=== PATIENT | male | born 1975 | race Caucasian/White ===

== ENCOUNTER → 2020-12-21 13:35 | Outpatient (BNVA) | payer OTHER, SELFPAY | PROVIDERS: PCP Internal Medicine; Visit Provider Internal Medicine Gastroenterology | DX: K63.89 Other specified diseases of intestine (principal) | CPT/HCPCS: 99212 ==

== ENCOUNTER 2022-07-18 06:25 | Day surgery (SDC) | payer OTHER, SELFPAY ==
--- NOTE | 2022-07-18 06:36 | P.HPSUR_ITS ---
Pre-Procedural Eval Section A Date of Service: 07/18/22 Section B Chief Complaint: Right upper quadrant pain Relevant Family History (Specify if Yes): No Relevant Social History: None Present Medications: see Short Stay Collaborative assessment Medical History: Significant History (sibo) History of Previous Operations: Relevant previous surgery/procedure and date(s) (H/O shoulder surgery History of esophagogastroduodenoscopy (EGD) Hx of colonoscopy Hx of tonsillectomy [place] teeth removed) Allergies: Allergies Allergy/AdvReac Type Severity Reaction Status Date / Time Obefmry-BEM-NiA Reductase Allergy Mild unknown Verified 12/21/20 13:59 Inhibitor [Trlfymt-Xxa-Tuu Reductase Inhibitor] Review of Systems Sugical H&P ROS: Negative: Constitution, Cardiovascular, Respiratory, Neurological, Psychiatric, Hem-Onc, Allergic/Immunologic, Gastrointestinal, Genitourinary, Musculoskeletal, Integumentary, Endocrine and Eyes/Ears/Nose/Throat Exam Surgical H&P Exam: Normal: HEENT, Normal: Heart, Normal: Lungs, Normal: Extremities, Normal: Abdomen, Normal: Skin and Normal: Neurological Plan Diagnosis/Plan: Unchanged I have reviewed the history and physical and performed a pertinent physical examination on my patient. No changes have occurred unless specified. EGD for assessment for abdominal pain Time Spent With Patient Time: Total time managing care of this patient today ____ minutes.
[2022-07-18 06:42] VITALS: BMI 22.8
[2022-07-18 06:47] VITALS: BP 126/80; PULSE 87; RESP 16; TEMP 36.1; O2SAT 99
[2022-07-18] MEDS: Lactated Ringers 1,000 ML 100 ML IVCONT (07:00)
--- NOTE | 2022-07-18 07:09 | P.CONAN_ITS ---
PMFSH Active Problems Active Problems: All Active Problems (Updated 12/21/20 @ 14:30 by Porfirio Dixon MD) Small intestinal bacterial overgrowth (SIBO) (Acute) Past Medical History Functional capacity: independent ambulation Family History Family history of problems with anesthesia: No Surgical History Surgical History H/O shoulder surgery History of esophagogastroduodenoscopy (EGD) Hx of colonoscopy Hx of tonsillectomy [place] teeth removed History of Problems with Anesthesia: No Social History Social History Patient Tobacco Use Status: Never used Tobacco Use of substances other than those prescribed or required for medical reasons: No Are you DNR?: No Advance Directives: No Advance Directives Information Provided: Yes Recently lost weight without trying: No Nutrition Risks: No Nutritional Risk Meds Allergies Allergy/AdvReac Type Severity Reaction Status Date / Time Veuybeq-FWC-YzF Reductase Allergy Mild unknown Verified 12/21/20 13:59 Inhibitor [Ddxzzrh-Uuy-Opa Reductase Inhibitor] Home Medications Medication Instructions Recorded Confirmed Last Taken Type epinephrine 0.3 mg/0.3 mL 0.3 ml IM ONCE PRN Anaphylaxis 12/21/20 07/18/22 U nknown History injection, auto-injector Exam Exam Date and Time: July 18, 2022 0709 Height,Weight and Vital Signs: Height 5 ft 9 in Weight 70.307 kg Last Vital Signs Temp 96.9 F 07/18/22 06:47 Pulse 87 07/18/22 06:47 Resp 16 07/18/22 06:47 BP 126/80 07/18/22 06:47 Pulse Ox 99 07/18/22 06:47 O2 Del Method 07/18/22 06:47 Airway Mallampati Class: II TM Dist: >3cm Neck ROM: Full Heart: RRR Lungs: CTA Assessment and Plan Final Anesthetic Review Family History of Problems with Anesthesia: No History of Problems with Anesthesia: No NPO: Yes ASA Class: II Final Preanesthetic Review: Meds/Allgs Chart Reviewed, Consent Obtained/Reviewed and Anes Risks/Benef Reviewed Patient Risk: Low Procedure Risk: Low Anesthetic Plan Anesthetic Plan: MAC: Disposition: Standard PACU
--- NOTE | 2022-07-18 08:38 | W.PM.OPN ---
Operative Note Operative Note Date of Service: 07/18/22 Narrative: Procedure Description: EGD Indication: abdo pain Anesthesia: MAC FLEXIBLE TRANSORAL UPPER GASTROINTESTINAL ENDOSCOPY UPPER ENDOSCOPY Consent: Indications for the procedure and potential complications of bleeding, perforation, reaction to medications and missed diagnosis were discussed with the patient and informed consent was obtained. Instrument: Olympus GIF H 190 J mid size upper endoscope Monitoring: Vital signs and clinical assessment, continuous EKG monitoring, Pulse oximetry, Carbon Dioxide monitoring and blood pressure monitoring were done throughout the procedure. Procedure: The patient was placed in the left lateral decubitis position and pre-procedure medications were administered and a bite block was placed. The endoscope was inserted into the mouth and advanced under direct vision to the third part of duodenum. A careful inspection was made as the upper endoscope was withdrawn including a retroflexed examination of the proximal stomach; Findings and interventions are described below. Findings: Larynx:normal Esophagus: GE junction at 43 cm, diaphragm hiatus at 43 cm, bogginess and erythema, with small erosion at GEJ, bx taken as well as from distal esophagus Stomach: Patchy gastric erythema with possible healing ulcer in distal stomach with heaped edges and edema. Biopsies were obtained. Grade 2 flap valve on retroflexed examination of the cardia. Duodenum: bulbar duodenitis Intervention: Biopsies as noted above Impression/Findings: erosive gastritis erosive esophagitis duodenitis PLAN: if H pylori pos treat confirm NSAID hx if not taking PPI then will prescribe, if is taking then maybe increase dose consider repeat EGD 3-5 months to check for healing of area in stomach noted above
[2022-07-18 08:44] VITALS: BP 107/64; PULSE 90; RESP 16; TEMP 36.4; O2SAT 95
[2022-07-18 09:00] VITALS: BP 109/45; PULSE 76; RESP 16; TEMP 36.4; O2SAT 96
--- NOTE | 2022-07-18 09:55 | HO.POSTANES ---
Post Anesthesia Evaluation Post Anesthesia Evaluation Vital Signs: Vital Signs Temp Pulse Resp BP Pulse Ox O2 Del Method 07/18/22 09:00 97.6 F 76 16 109/45 L 96 Room Air 07/18/22 08:44 97.6 F 90 16 107/64 95 Room Air 07/18/22 06:47 96.9 F 87 16 126/80 99 Room Air Anesthesia: Monitored Mental Status: Awake Pain Control: Satisfactory Nausea/Vomiting: None Anesthesia-Related Issues: No Anes. Related Issues
== END 2022-07-18 09:54 | disposition home or self-care (01) ==
PROVIDERS: PCP Family Medicine; Visit Provider Internal Medicine Gastroenterology
PROC: 0DJ08ZZ Inspection of Upper Intestinal Tract, Via Natural or Artificial Opening Endoscopic (ICD-10-PCS; CPT 43235; principal; 2022-07-18 07:30)
DX: K29.50 Unspecified chronic gastritis without bleeding (principal); K29.80 Duodenitis without bleeding; K20.80 Other esophagitis without bleeding; K44.9 Diaphragmatic hernia without obstruction or gangrene; Z88.8 Allergy status to other drugs, medicaments and biological substances; Z79.899 Other long term (current) drug therapy
CPT/HCPCS: 43239; 88305; 88342

== ENCOUNTER → 2022-08-14 12:48 | Outpatient (BNVA) | payer OTHER, SELFPAY | PROVIDERS: PCP Family Medicine; Visit Provider Internal Medicine Gastroenterology | DX: K20.90 Esophagitis, unspecified without bleeding (principal) | CPT/HCPCS: 99212 ==

== ENCOUNTER 2022-09-27 07:21 | Day surgery (SDC) | payer OTHER, SELFPAY ==
[2022-09-25 09:03] VITALS: BMI 23.0
--- NOTE | 2022-09-26 11:56 | HO.ANESPROP2 ---
Documented by User: Ana Person NP 09/26/22 11:56 HPI - Anesthesia Eval Consult details Narrative: 47yo M for Upper Endoscopy s/p EGD 06/2022 with MAC PMFSH Active Problems Active Problems: All Active Problems (Updated 09/25/22 @ 09:01 by Claire Rasmussen RN) Small intestinal bacterial overgrowth (SIBO) (Acute) Past Medical History Medical History (Updated 09/25/22 @ 09:01 by Claire Rasmussen RN) Erosive gastritis Small intestinal bacterial overgrowth (SIBO) Family History Family history of problems with anesthesia: No Surgical History Surgical History (Updated 09/25/22 @ 09:00 by Claire Rasmussen RN) H/O shoulder surgery History of esophagogastroduodenoscopy (EGD) Hx of colonoscopy Hx of tonsillectomy [place] teeth removed History of Problems with Anesthesia: No Social History Social History Patient Tobacco Use Status: Never used Tobacco Use of substances other than those prescribed or required for medical reasons: No Are you DNR?: No Advance Directives: No Advance Directives Information Provided: Yes Recently lost weight without trying: No Meds Allergies Allergy/AdvReac Type Severity Reaction Status Date / Time Pmjomyp-ZEY-IeU Reductase Allergy Mild unknown Verified 08/14/22 12:51 Inhibitor [Jmifznl-Oik-Tth Reductase Inhibitor] Home Medications Medication Instructions Recorded Confirmed Last Taken Type ssojbioj-owr-kjesb 120 mcg-lutein 1 tab PO DAILY 08/14/22 09/27/22 Unknown History 150 mcg-herb 50 mg chewable tablet (Alive Men's 50 Plus Multivitamin) omega 1-itj-mxh-fish oil 60 mg-90 1 cap PO DAILY 08/14/22 09/27/22 09/24/22 History mg-500 mg capsule (Fish Oil) Exam Exam Date and Time: September 26, 2022 1156 Height,Weight and Vital Signs: Height 5 ft 9 in Weight 70.76 kg Assessment and Plan Assessment Anesthesia Assessment: Chart Reviewed Final Anesthetic Review Family History of Problems with Anesthesia: No History of Problems with Anesthesia: No Documented by User: Allie Chang MD 09/27/22 08:17 [facility] Past Medical History Medical History (Updated 09/25/22 @ 09:01 by Claire Rasmussen RN) Erosive gastritis Small intestinal bacterial overgrowth (SIBO) Surgical History Surgical History (Updated 09/25/22 @ 09:00 by Claire Rasmussen RN) H/O shoulder surgery History of esophagogastroduodenoscopy (EGD) Hx of colonoscopy Hx of tonsillectomy [place] teeth removed Social History Social History Patient Tobacco Use Status: Never used Tobacco Use of substances other than those prescribed or required for medical reasons: No Are you DNR?: No Advance Directives: No Advance Directives Information Provided: Yes Recently lost weight without trying: No Meds Allergies Allergy/AdvReac Type Severity Reaction Status Date / Time Rehcizg-CHF-WuP Reductase Allergy Mild unknown Verified 08/14/22 12:51 Inhibitor [Baclphk-Wxd-Icf Reductase Inhibitor] Home Medications Medication Instructions Recorded Confirmed Last Taken Type wrudfzrh-ghk-bjgev 120 mcg-lutein 1 tab PO DAILY 08/14/22 09/27/22 Unknown History 150 mcg-herb 50 mg chewable tablet (Alive Men's 50 Plus Multivitamin) omega 7-rwr-ngn-fish oil 60 mg-90 1 cap PO DAILY 08/14/22 09/27/22 09/24/22 History mg-500 mg capsule (Fish Oil) Exam Airway Mallampati Class: II TM Dist: >3cm Neck ROM: Full Heart: rrr Lungs: cta Assessment and Plan Assessment Anesthesia Assessment: Anesthesia Plan Discussed Final Anesthetic Review NPO: Yes ASA Class: I Final Preanesthetic Review: No Changes in Pt Med Stat, Meds/Allgs Chart Reviewed and Consent Obtained/Reviewed Patient Risk: Intermediate Procedure Risk: Intermediate Anesthetic Plan Anesthetic Plan: MAC: Disposition: Standard PACU
[2022-09-27 08:04] VITALS: BP 134/86; PULSE 90; RESP 16; TEMP 36.3; O2SAT 99; BMI 22.2
[2022-09-27] MEDS: Lactated Ringers 1,000 ML 100 ML IVCONT (08:26)
--- NOTE | 2022-09-27 09:03 | P.HPSUR_ITS ---
Pre-Procedural Eval Section A Date of Service: 09/27/22 Section B Chief Complaint: esophagitis Relevant Family History (Specify if Yes): No Relevant Social History: None Present Medications: see Short Stay Collaborative assessment Medical History: Significant History (gastritis, SIBO) History of Previous Operations: Relevant previous surgery/procedure and date(s) (H/O shoulder surgery History of esophagogastroduodenoscopy (EGD) Hx of colonoscopy Hx of tonsillectomy [place] teeth removed) Allergies: Allergies Allergy/AdvReac Type Severity Reaction Status Date / Time Rwabtfv-EMI-YjQ Reductase Allergy Mild unknown Verified 08/14/22 12:51 Inhibitor [Hoxvlhx-Tdj-Uju Reductase Inhibitor] Review of Systems Sugical H&P ROS: Negative: Constitution, Cardiovascular, Respiratory, Neurological, Psychiatric, Hem-Onc, Allergic/Immunologic, Gastrointestinal, Genitourinary, Musculoskeletal, Integumentary, Endocrine and Eyes/Ears/Nose/Throat Exam Surgical H&P Exam: Normal: HEENT, Normal: Heart, Normal: Lungs, Normal: Extremities, Normal: Abdomen, Normal: Skin and Normal: Neurological Plan Diagnosis/Plan: Unchanged I have reviewed the history and physical and performed a pertinent physical examination on my patient. No changes have occurred unless specified. Time Spent With Patient Time: Total time managing care of this patient today ____ minutes.
--- NOTE | 2022-09-27 09:04 | W.PM.OPN ---
Operative Note Operative Note Date of Service: 09/27/22 Narrative: Procedure Description: EGD Indication: esophagitis Anesthesia: MAC FLEXIBLE TRANSORAL UPPER GASTROINTESTINAL ENDOSCOPY UPPER ENDOSCOPY Consent: Indications for the procedure and potential complications of bleeding, perforation, reaction to medications and missed diagnosis were discussed with the patient and informed consent was obtained. Instrument: Olympus GIF H 190 J mid size upper endoscope Monitoring: Vital signs and clinical assessment, continuous EKG monitoring, Pulse oximetry, Carbon Dioxide monitoring and blood pressure monitoring were done throughout the procedure. Procedure: The patient was placed in the left lateral decubitis position and pre-procedure medications were administered and a bite block was placed. The endoscope was inserted into the mouth and advanced under direct vision to the third part of duodenum. A careful inspection was made as the upper endoscope was withdrawn including a retroflexed examination of the proximal stomach; Findings and interventions are described below. Findings: Larynx:normal Esophagus: GE junction at 43? cm, diaphragm hiatus at 43 cm, mild esophagitis, possible short segment barretts, bx taken Stomach: Normal mucosa, no ulcers seen. Grade 2 flap valve on retroflexed examination of the cardia. Duodenum: normal mucosa Intervention: Biopsies as noted above Impression/Findings: mild esophagitis PLAN: cont with PPI, can cut down dose in 6-12 months cont with multivitamin and Vit D supplement
[2022-09-27 09:30] VITALS: BP 108/64; PULSE 103; RESP 16; TEMP 36.4; O2SAT 95
[2022-09-27 09:45] VITALS: BP 100/60; PULSE 87; RESP 16; TEMP 36.4; O2SAT 98
== END 2022-09-27 10:08 | disposition home or self-care (01) ==
PROVIDERS: PCP Family Medicine; Visit Provider Internal Medicine Gastroenterology
PROC: 0DJ08ZZ Inspection of Upper Intestinal Tract, Via Natural or Artificial Opening Endoscopic (ICD-10-PCS; CPT 43235; principal; 2022-09-27 09:10)
DX: K20.80 Other esophagitis without bleeding (principal); Z87.19 Personal history of other diseases of the digestive system; Z79.899 Other long term (current) drug therapy; Z88.8 Allergy status to other drugs, medicaments and biological substances
CPT/HCPCS: 43239; 88305

== ENCOUNTER → 2022-10-13 09:27 | Outpatient (BNVA) | payer OTHER, SELFPAY | PROVIDERS: PCP Family Medicine; Visit Provider Internal Medicine Gastroenterology | DX: K20.90 Esophagitis, unspecified without bleeding (principal) | CPT/HCPCS: 99212 ==

== ENCOUNTER 2023-02-12 09:34 | Outpatient (AMB) | payer OTHER, SELFPAY ==
--- NOTE | 2023-02-12 09:34 | A.OFFVIS_ITS ---
Intake Intake Visit Reasons: 6 Months FU Intake Note: Oswaldo presents as a 6 month follow up telehealth today. CC: esophagitis has been gone and has not returned but the duodenitis plays cat and mouse -- he would like to now if you feel like he should switch up his diet because that seems to be the issue? 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 Allergies Ubfsjvm-TEE-ImG Reductase Inhibitor [Eftyiaa-Cqp-Vli Reductase Inhibitor] Allergy (Mild, Verified 02/12/23 09:35) unknown HPI 6 Months FU HPI Details 48 yr old m being called for f/u RECAP He has hx of sibo had EGD 06/2022 with erosive gastritis, esophagitis and duodenitis Path:active esophagitis and moderate chronic esophagitis Rept EGD 10/10--improvement in the esophagitis INTERIM: he has no issues with esophagitis at this time he notes diet can affect symptoms on and off appetite has been good no dysphagia weight is stable he is still taking PPI A/P: 1/ Esophagitis, ongoing and chronic--imp roved with PPI PLAN: 1/ advised to take lansoprazole daily, a long with multi vitamin---he wants to repeat EGD to help document resolution of inflammation and help guide treatment with PPI which is reasonable, can do it in Apr 2023--also he will check when his last colo was , maybe due another, can do both PFSH Medical History Erosive gastritis Small intestinal bacterial overgrowth (SIBO) Surgical History [place] teeth removed H/O shoulder surgery Hx of tonsillectomy History of esophagogastroduodenoscopy (EGD) Hx of colonoscopy Social History Patient Tobacco Use Status: Never used Tobacco Telehealth Telehealth Location of provider rendering services: practice address Location of patient: address on file Patient Identification confirmed using: Name, : Yes Telehealth method: voice only (video not working) Patient verbally consented to treatment: Yes Patient verbally consented to billing insurance company: Yes Patient informed of any privacy concerns related to visit: Yes Minutes spent on Phone/Video with Pt.: 8 Coding Level of Care Code Tele Est Pt Level 3 (99181)
== END 2023-02-12 10:37 | disposition home or self-care (01) ==
LOC: HO.HGI 09:34
PROVIDERS: PCP Family Medicine; Visit Provider Internal Medicine Gastroenterology
DX: K20.90 Esophagitis, unspecified without bleeding (principal)
CPT/HCPCS: 99213

== ENCOUNTER → 2023-02-12 09:34 | Outpatient (BNVA) | payer OTHER, SELFPAY | PROVIDERS: PCP Family Medicine; Visit Provider Internal Medicine Gastroenterology ==

== ENCOUNTER 2023-08-14 07:14 | Day surgery (SDC) | payer OTHER, SELFPAY ==
[2023-08-10 12:59] VITALS: BMI 22.2
--- NOTE | 2023-08-13 12:35 | HO.ANESPROP2 ---
Documented by User: Ana Person NP 08/13/23 12:35 HPI - Anesthesia Eval Consult details Narrative: 48yo M for ?Upper Endoscopy PMFSH Active Problems Active Problems: All Active Problems (Updated 10/13/22 @ 09:50 by Porfirio Dixon MD) Esophagitis determined by endoscopy (Acute) Small intestinal bacterial overgrowth (SIBO) (Acute) Past Medical History Medical History Erosive gastritis Small intestinal bacterial overgrowth (SIBO) Family History Family history of problems with anesthesia: No Surgical History Surgical History H/O oral surgery [place] teeth removed H/O shoulder surgery Hx of tonsillectomy History of esophagogastroduodenoscopy (EGD) Hx of colonoscopy History of Problems with Anesthesia: No Social History Social History Patient Tobacco Use Status: Never used Tobacco Use of substances other than those prescribed or required for medical reasons: No Are you DNR?: No Advance Directives: No Advance Directives Information Provided: Yes Meds Allergies Allergy/AdvReac Type Severity Reaction Status Date / Time Dftsisf-AXU-LrI Reductase Allergy Mild unknown Verified 02/12/23 09:35 Inhibitor [Veacotx-Gkv-Fpm Reductase Inhibitor] Home Medications Medication Instructions Recorded Confirmed Last Taken Type hqopeyvu-foe-jzjvc 120 mcg-lutein 1 tab PO DAILY 08/14/22 08/14/23 Unknown History 150 mcg-herb 50 mg chewable tablet (Alive Men's 50 Plus Multivitamin) omega 4-vcn-olo-fish oil 60 mg-90 1 cap PO DAILY 08/14/22 08/14/23 09/24/22 History mg-500 mg capsule (Fish Oil) fluticasone propionate 50 1 spray intranasal DAILY 02/12/23 08/14/23 Unknown History mcg/actuation nasal spray,suspension ketotifen fumarate 0.025 % (0.035 1 drp ophthalmic (eye) DAILY 02/12/23 08/14/23 Unknown History %) eye drops Exam Height,Weight and Vital Signs: Height 5 ft 10 in Weight 70.307 kg Assessment and Plan Assessment Anesthesia Assessment: Chart Reviewed Final Anesthetic Review Family History of Problems with Anesthesia: No History of Problems with Anesthesia: No Documented by User: Swetha Wells MD 08/14/23 08:34 PMF Active Problems Active Problems: All Active Problems (Updated 10/13/22 @ 09:50 by Porfirio Dixon MD) Esophagitis determined by endoscopy (Acute) Small intestinal bacterial overgrowth (SIBO) (Acute) Vitamin deficiency Past Medical History Medical History Erosive gastritis Small intestinal bacterial overgrowth (SIBO) Family History Family history of problems with anesthesia: No Surgical History Surgical History H/O oral surgery [place] teeth removed H/O shoulder surgery Hx of tonsillectomy History of esophagogastroduodenoscopy (EGD) Hx of colonoscopy History of Problems with Anesthesia: No Social History Social History Patient Tobacco Use Status: Never used Tobacco Use of substances other than those prescribed or required for medical reasons: No Are you DNR?: No Advance Directives: No Advance Directives Information Provided: Yes Meds Allergies Allergy/AdvReac Type Severity Reaction Status Date / Time Zzuzpcl-GMD-HdM Reductase Allergy Mild unknown Verified 02/12/23 09:35 Inhibitor [Slhyzmw-Mwa-Sjy Reductase Inhibitor] Home Medications Medication Instructions Recorded Confirmed Last Taken Type qvzbsfwk-nsh-gtrpv 120 mcg-lutein 1 tab PO DAILY 08/14/22 08/14/23 Unknown History 150 mcg-herb 50 mg chewable tablet (Alive Men's 50 Plus Multivitamin) omega 3-vow-rfn-fish oil 60 mg-90 1 cap PO DAILY 08/14/22 08/14/23 09/24/22 History mg-500 mg capsule (Fish Oil) fluticasone propionate 50 1 spray intranasal DAILY 02/12/23 08/14/23 Unknown History mcg/actuation nasal spray,suspension ketotifen fumarate 0.025 % (0.035 1 drp ophthalmic (eye) DAILY 02/12/23 08/14/23 Unknown History %) eye drops Exam Height,Weight and Vital Signs: Height 5 ft 10 in Weight 70.307 kg Vital Signs Temp Pulse Resp BP Pulse Ox O2 Del Method 08/14/23 08:00 98.5 F 90 16 131/80 99 Room Air Airway Mallampati Class: II TM Dist: >3cm Neck ROM: Full Loose/Missing/Broken Teeth: Yes (Some teeth missing front) Heart: RRR Lungs: CTAB Assessment and Plan Assessment Anesthesia Assessment: Anesthesia Plan Discussed and Chart Reviewed Final Anesthetic Review Family History of Problems with Anesthesia: No History of Problems with Anesthesia: No NPO: Yes ASA Class: II Final Preanesthetic Review: No Changes in Pt Med Stat, Meds/Allgs Chart Reviewed, Consent Obtained/Reviewed and Anes Risks/Benef Reviewed Patient Risk: Low Procedure Risk: Low Assessment/Block/Sedation in SS: Assess/Block/Sedation-SS Anesthetic Plan Anesthetic Plan: MAC: and TIVA Disposition: Standard PACU
[2023-08-14 07:52] VITALS: BMI 24.4
[2023-08-14 08:00] VITALS: BP 131/80; PULSE 90; RESP 16; TEMP 36.9; O2SAT 99
--- NOTE | 2023-08-14 08:03 | P.HPSUR_ITS ---
Pre-Procedural Eval Section A - 24 Hr Update-Section A only Date of Service: 08/14/23 Section B - Complete if H&P > 30 days Chief Complaint: Other gastritis without bleeding Relevant Family History (Specify if Yes): No Relevant Social History: None Present Medications: see Short Stay Collaborative assessment Medical History: Significant History (Erosive gastritis Small intestinal bacterial overgrowth (SIBO)) History of Previous Operations: Relevant previous surgery/procedure and date(s) ([place] teeth removed H/O shoulder surgery Hx of tonsillectomy History of esophagogastroduodenoscopy (EGD) Hx of colonoscopy) Allergies: Allergies Allergy/AdvReac Type Severity Reaction Status Date / Time Iageybv-VSI-XyO Reductase Allergy Mild unknown Verified 02/12/23 09:35 Inhibitor [Ysacfsx-Jon-Gav Reductase Inhibitor] Review of Systems Sugical H&P ROS: Negative: Constitution, Cardiovascular, Respiratory, Neurological, Psychiatric, Hem-Onc, Allergic/Immunologic, Gastrointestinal, Genitourinary, Musculoskeletal, Integumentary, Endocrine and Eyes/Ears/Nose/Throat Exam Surgical H&P Exam: Normal: HEENT, Normal: Heart, Normal: Lungs, Normal: Extremities, Normal: Abdomen, Normal: Skin and Normal: Neurological Plan Diagnosis/Plan: Unchanged I have reviewed the history and physical and performed a pertinent physical examination on my patient. No changes have occurred unless specified. Time Spent With Patient Time: Total time managing care of this patient today ____ minutes.
[2023-08-14] MEDS: Lactated Ringers 1,000 ML 100 ML IVCONT (08:11)
--- NOTE | 2023-08-14 08:41 | W.PM.OPN ---
Operative Note Operative Note Date of Service: 08/14/23 Narrative: Procedure Description: EGD Indication: esophagitis Anesthesia: MAC FLEXIBLE TRANSORAL UPPER GASTROINTESTINAL ENDOSCOPY UPPER ENDOSCOPY Consent: Indications for the procedure and potential complications of bleeding, perforation, reaction to medications and missed diagnosis were discussed with the patient and informed consent was obtained. Instrument: Olympus GIF H 190 J mid size upper endoscope Monitoring: Vital signs and clinical assessment, continuous EKG monitoring, Pulse oximetry, Carbon Dioxide monitoring and blood pressure monitoring were done throughout the procedure. Procedure: The patient was placed in the left lateral decubitis position and pre-procedure medications were administered and a bite block was placed. The endoscope was inserted into the mouth and advanced under direct vision to the third part of duodenum. A careful inspection was made as the upper endoscope was withdrawn including a retroflexed examination of the proximal stomach; Findings and interventions are described below. Findings: Larynx:normal Esophagus: GE junction at 45 cm, diaphragm hiatus at 45 cm, normal mucosa --bx taken from gEJ, distal and proximal esophagus Stomach: pathcy erythem in the mid body with erosion noted . Biopsies were obtained. Grade 2 flap valve on retroflexed examination of the cardia. Duodenum: Normal bulb and descending duodenum, bx taken Intervention: Biopsies as noted above, Impression/Findings: erosive gastritis PLAN: check nsaid hx, GERD precautions can add carafate for few weeks --apparently B12 was low per PCP--will send SL B12 can consider taking PPI every other day
[2023-08-14 08:50] VITALS: BP 109/54; PULSE 95; RESP 18; TEMP 36.4; O2SAT 98
[2023-08-14 09:05] VITALS: BP 114/59; PULSE 81; RESP 16; TEMP 36.4; O2SAT 99
== END 2023-08-14 09:21 | disposition home or self-care (01) ==
PROVIDERS: PCP Family Medicine; Visit Provider Internal Medicine Gastroenterology
PROC: 0DJ08ZZ Inspection of Upper Intestinal Tract, Via Natural or Artificial Opening Endoscopic (ICD-10-PCS; CPT 43235; principal; 2023-08-14 08:20)
DX: K29.60 Other gastritis without bleeding (principal); K63.8219 Small intestinal bacterial overgrowth, unspecified; K20.80 Other esophagitis without bleeding; K44.9 Diaphragmatic hernia without obstruction or gangrene; Z79.899 Other long term (current) drug therapy; Z98.890 Other specified postprocedural states
CPT/HCPCS: 43239; 88305; 88313; 88342; J2704

== ENCOUNTER → 2023-08-14 07:14 | Outpatient (BNV) | payer OTHER, SELFPAY | PROVIDERS: PCP Family Medicine; Visit Provider Internal Medicine Gastroenterology | DX: K29.60 Other gastritis without bleeding (principal) | CPT/HCPCS: 43239 ==

== ENCOUNTER 2023-08-31 11:18 | Outpatient (AMB) | payer OTHER, SELFPAY ==
--- NOTE | 2023-08-31 11:18 | A.OFFVIS_ITS ---
Intake Intake Visit Reasons: post op procedures Intake Note: Oswaldo presents in the office as a follow up to his EGD. CC: States he has questions regarding pathology but other than that he is feeling okay. Allergies Socdemf-RSD-AcG Reductase Inhibitor [Lgamokt-Dxx-Eka Reductase Inhibitor] Allergy (Mild, Verified 08/31/23 11:18) unknown HPI post op procedures HPI Details 48 yr old m being called for f/u RECAP He has hx of sibo had EGD 06/2022 with erosive gastritis, esophagitis and duodenitis Path:active esophagitis and moderate chronic esophagitis Rept EGD 10/10--improvement in the esophagitis REPT EGD : 08/11 normal esophagus erosive gastritis INTERIM: he has no main issues he is happy with carafate he has been going thru a lot of stress, mum is sick not taking nsaids appetite has been good exam: talking easily, good color A/P: 1/ Esophagitis, ongoing and chronic--imp roved with PPI, some stress realted gastritis most likely PLAN: 1/ advised to take lansoprazole daily, a long with multi vitamin--nad Vit d--cont for at least 1 yr and we can re eval either clinically or endoscopically PFSH Medical History Erosive gastritis Small intestinal bacterial overgrowth (SIBO) Surgical History H/O oral surgery [place] teeth removed H/O shoulder surgery Hx of tonsillectomy History of esophagogastroduodenoscopy (EGD) Hx of colonoscopy Social History Patient Tobacco Use Status: Never used Tobacco Assessment & Plan Assessment & Plan (1) Esophagitis determined by endoscopy: Code(s): K20.90 - Esophagitis, unspecified without bleeding Plan see above Medications: Refilled lansoprazole 30 mg PO DAILY 90 caps 1RF Telehealth Telehealth Location of provider rendering services: practice address Location of patient: address on file Patient Identification confirmed using: Name, : Yes Telehealth method: video Patient verbally consented to treatment: Yes Patient verbally consented to billing insurance company: Yes Patient informed of any privacy concerns related to visit: Yes Minutes spent on Phone/Video with Pt.: 6 Coding Level of Care Code Tele Est Pt Level 3 (77886) Diagnoses Esophagitis determined by endoscopy K20.90
--- OUTSIDE RECORDS SUMMARY | 2023-08-31 11:20 | XMS_ITS | Continuity of Care Document ---
Author Organization [facility] ter Address [address] [place] [address]- Care Team Providers Care Art Professor Name Role Phone Homero Noel Primary Care Physician Encounter [facility] [place] Date(s): 02/26/21 - 02/26/[address] [address]- Encounter Diagnosis Lightheaded(Final) - 02/26/21 Discharge Disposition: A-D/C Home Attending Physician: Jed Garcia MD Admitting Physician: Jed Garcia MD Referring Physician: Not on Staff, Referring MD Allergies, Adverse Reactions, Alerts Substance Reaction Severity Status Lipitor Active Crestor Active Medications Fish Oil By Mouth, 0 Refills, Maintenance, 06/24/18 8:49:37 EST Start Date: 06/24/18 Status: Ordered Multivitamin Daily, 0 Refills, Maintenance, 06/24/18 8:49:30 EST Start Date: 06/24/18 Status: Ordered Vital Signs Most recent to oldest [Reference Range]: 1 2 Height 175 cm (02/26/21 12:56 PM) Weight 75 kg (02/26/21 12:56 PM) Oxygen Saturation [94-100 %] 100 % (02/26/21 12:56 PM) 100 % (02/26/21 12:49 PM) Pulse Rate [55-90 bpm] 92 bpm *H* (02/26/21 12:56 PM) 100 bpm *H* (02/26/21 12:49 PM) Blood Pressure [90-138/55-84 mm Hg] 148/ 77mm Hg *H* (02/26/21 12:56 PM) Respiratory Rate [16-30 br/min] 18 br/mi n (02/26/21 12:56 PM) Temperature [96.8-100.4 DegF] 97.9 DegF (02/26/21 12:56 PM) Mode of Delivery (Oxygen) Room air (02/26/21 12:56 PM) Room air (02/26/21 12:49 PM) Blood pressure sites Arm, left (02/26/21 12:56 PM) Temperature Route Oral (02/26/21 12:56 PM) Dry Weight 75 kg (02/26/21 12:56 PM) Social History Social History Type Response Smoking Status Never smoker; Tobacc o user in household: No entered on: 08/17/17 Sex
--- OUTSIDE RECORDS SUMMARY | 2023-08-31 11:20 | XMS_ITS | Continuity of Care Document ---
Author Organization [facility] Address [address] [place] [address]- Care Team Providers Care Associate Professor Of English Name Role Phone Bebeto MOSES, Yong Moon Primary Care Physician [place] [facility] [place] 10/28/21 - 11/27/21 [facility] [address] [place] [address]- Allergies, Adverse Reactions, Alerts Substance Reaction Severity Status Lipitor Active Zetia Persistent Severe Active Crestor Active evolocumab Severe Active Rosuvastatin Calcium Active Medications Fish Oil By Mouth, 0 Refills, Maintenance, 06/24/18 8:49:37 EST Start Date: 06/24/18 Status: Ordered gabapentin 300 mg oral capsule 300 mg, 1, capsule, By Mouth, 3 times a day, start at bedtime, and then space out every 6-8 hours while awake, # 90 capsule, Refills 5, Tot. Refills 5, Maintenance, 10/07/21 8:54:00 EDT, Route to Pharmacy Electronically, [facility]/pharmacy #[id number], Partial fi... Start Date: 10/07/21 Stop Date: 04/05/22 Status: Ordered Multivitamin Daily, 0 Refills, Maintenance, 06/24/18 8:49:30 EST Start Date: 06/24/18 Status: Ordered Problem List Condition Effective Dates Status Health Status Inform ant Drug reaction(Confirmed) Active Hyperlipidemia(Confirmed) Active Social History Social History Type Response Smoking Status Never smoker; Tobacc o user in household: No entered on: 08/17/17 Sex
--- OUTSIDE RECORDS SUMMARY | 2023-08-31 11:20 | XMS_ITS | Continuity of Care Document ---
Author Organization [facility] Address [address] [place] [address]- Care Team Providers Care Telecommunications Network Engineer Name Role Phone Bebeto MOSES, Yong Moon Primary Care Physician Encounter [facility] [place] ACCT R [id number] Date(s): 11/25/21 - 12/25/21 [facility] [address] [place] [address]- Attending Physician: Maggie Lino Admitting Physician: Maggie Lino Referring Physician: Admtr ArIsai Allergies, Adverse Reactions, Alerts Substance Reaction Severity [...] 10/07/21 8:54:00 EDT, Route to Pharmacy Electronically, [facility]/pharmacy #[id number], Partial fi... Start Date: 10/07/21 Stop Date: [...]
--- OUTSIDE RECORDS SUMMARY | 2023-08-31 11:20 | XMS_ITS | Continuity of Care Document ---
Author Organization [facility] Address [address] [place] [address], [address] [place] [address]- Care Team Providers Care Hand Polisher Name Role Phone Yong Tate MD Primary Care Physician [place] [facility] [place] 05/25/22 [facility] [address] [place] [address], [address] [place], [place] [address] Attending Physician: Maggie Lino Admitting Physician: AdmtrMaggie Referring Physician: AdmtrMaggie Allergies, Adverse Reactions, Alerts Substance Reaction Severity Status Lipitor Active Zetia Persistent Severe Active evolocumab Severe Active Crestor Active Rosuvastatin Calcium Active Medications Fish Oil By Mouth, 0 Refills, Maintenance, 06/24/18 8:49:37 EST Start Date: 06/24/18 Status: Ordered Multivitamin Daily, 0 Refills, Maintenance, 06/24/18 8:49:30 EST Start Date: 06/24/18 Status: Ordered Problem List Condition Confirmation Course Effective Dates Status Health St atus Informant Drug reaction Confirmed Active Hyperlipidemia Confirmed Active Social History Social History Type Response Smoking Status Never smoker; Tobacc o user in household: No entered on: 08/17/17 Sex Patient Care team information Care Team Personnel Name: Yong Tate MD Position: Reference Physician Member Role: PCP Address: Address: [address] [place] [address]- Name: Celia Rivera [place] Position: [facility] Member Role: Lifetime Consulting Physician Care Team Related Persons Name: EMMY HUNTLEY Address: home [address] [place] [address] Name: MAURY HENRIQUEZ Address: home [address] [place] [address]
--- OUTSIDE RECORDS SUMMARY | 2023-08-31 11:20 | XMS_ITS | Continuity of Care Document ---
Author Organization [facility] Address [address] [place] [address], [address] [place] [address]- Care Team Providers Care Bakery Technician Name Role Phone Yong Tate MD Primary Care Physician [place] [facility] [place]s): 02/21/22 - 03/23/22 [facility] [address] [place] [address] Drive, [address] [place], [place] [address] Allergies, Adverse Reactions, Alerts Substance Reaction Severity [...] on: 08/17/17 Sex Patient Care team information Personnel Name: Yong Tate MD Address: Address: [address] [place] [address]
--- OUTSIDE RECORDS SUMMARY | 2023-08-31 11:20 | XMS_ITS | Continuity of Care Document ---
Author Organization [facility] Address [address] [place] [address]- Care Team Providers Care Nuclear Powerplant Mechanic Name Role Phone Bebeto MOSES, Yong Moon Primary Care Physician Encounter [facility] [place] Date(s): 11/18/21 - 12/18/21 [facility] [address] [place] [address]- Allergies, Adverse Reactions, Alerts Substance Reaction Severity [...] 10/07/21 8:54:00 EDT, Route to Pharmacy Electronically, [facility]/pharmacy #[id number], Partial fi... Start Date: 10/07/21 Stop Date: [...]
--- OUTSIDE RECORDS SUMMARY | 2023-08-31 11:20 | XMS_ITS | Continuity of Care Document ---
Author Organization [facility] Address Unknown Care Team Providers Care Photograph Retoucher Name Role Phone Bebeto MOSES, Yong Moon Primary Care Physician [place] [facility] [place] 10/26/21 - 11/25/21 [facility] Allergies, Adverse Reactions, Alerts Substance Reaction Severity [...] 10/07/21 8:54:00 EDT, Route to Pharmacy Electronically, [facility]/pharmacy #[id number], Partial fi... Start Date: 10/07/21 Stop Date: [...]
--- OUTSIDE RECORDS SUMMARY | 2023-08-31 11:20 | XMS_ITS | Continuity of Care Document ---
Author Organization [facility] Address Unknown Care Team Providers Care Harvest Worker Field Crop Name Role Phone Bebeto MOSES, Yong Moon Primary Care Physician En[place] [facility] [place] Date(s): 10/20/21 - 11/19/21 [facility] Attending Physician: Maggie Lino Admitting Physician: Maggie Lino Referring Physician: Maggie Lino Allergies, Adverse Reactions, Alerts Substance Reaction Severity Status Lipitor Active Zetia Persistent Severe Active Crestor Active Rosuvastatin Calcium Active evolocumab Severe Active Medications Fish Oil By Mouth, 0 Refills, Maintenance, 06/24/18 8:49:37 EST Start Date: 06/24/18 Status: Ordered gabapentin 300 mg oral capsule 300 mg, 1, capsule, By Mouth, 3 times a day, start at bedtime, and then space out every 6-8 hours while awake, # 90 capsule, Refills 5, Tot. Refills 5, Maintenance, 10/07/21 8:54:00 EDT, Route to Pharmacy Electronically, [facility]/pharmacy #[id number], Partial fi... Start Date: 10/07/21 Stop Date: [...]
--- OUTSIDE RECORDS SUMMARY | 2023-08-31 11:20 | XMS_ITS | Continuity of Care Document ---
Author Organization [facility] Address [address] [place] [address]- Care Team Providers Care Teacher Of The Handicapped Name Role Phone Yong Tate MD Primary Care Physician Encounter [facility]BR [id number] Date(s): 03/20/22 - 04/19/22 [facility] [address] [place] [address] Attending Physician: Maggie Lino Admitting Physician: AdmtrMaggie Referring Physician: AdmtrMaggie Allergies, Adverse Reactions, Alerts Substance Reaction Severity Status Lipitor Active Zetia Persistent Severe Active evolocumab Severe Active Rosuvastatin Calcium Active Crestor Active Medications Fish Oil By [...] Reference Physician Member Role: PCP Address: Address: [address] [place] [address]- Name: Celia Rivera [place] Position: [facility] Member Role: Lifetime Consulting Physician Care Team Related Persons Name: EMMY HUNTLEY Address: home [address] [place] [address] Name: MAURY HENRIQUEZ Address: home [address] [place] [address]
--- OUTSIDE RECORDS SUMMARY | 2023-08-31 11:20 | XMS_ITS | Continuity of Care Document ---
Author Organization [facility] Address Unknown Care Team Providers Care Automotive Diagnostic Technician Name Role Phone Bebeto MOSES, Yong Moon Primary Care Physician Encounter [facility] [place] Date(s): 10/07/21 - 10/14/21 [facility] Attending Physician: Not on Staff, Attending MD Referring Physician: Jackie Richardson MD Allergies, Adverse Reactions, Alerts Substance Reaction [...] 10/07/21 8:54:00 EDT, Route to Pharmacy Electronically, [facility]/pharmacy #[id number], Partial fi... Start Date: 10/07/21 Stop Date: 04/05/22 Status: Ordered Multivitamin Daily, 0 Refills, Maintenance, 06/24/18 8:49:30 EST Start Date: 06/24/18 Status: Ordered Problem List Condition Effective Dates Status Health Status Inform ant Drug reaction(Confirmed) Active Hyperlipidemia(Confirmed) Active Vital Signs Most recent to oldest [Reference Range]: 1 Height 178 cm (10/07/21 7:40 AM) Pulse Rate [55-90 bpm] 79 bpm (10/07/21 7:40 AM) Blood Pressure [90-138/55-84 mm Hg] 131/ 59mm Hg (10/07/21 7:40 AM) Blood pressure sites Arm, left (10/07/21 7:40 AM) Social History Social History Type Response Smoking Status Never smoker; Tobacc o user in household: No entered on: 08/17/17 Sex
--- OUTSIDE RECORDS SUMMARY | 2023-08-31 11:20 | XMS_ITS | Continuity of Care Document ---
Author Organization [facility] Address [address] [facility], [address] Floor, [address] [place] [address]- Care Team Providers Care Broadcast Program Director Name Role Phone Yong Tate MD Primary Care Physician [place] [facility] [place] - 04/23/22 [facility] [address] [facility], [address]rd Floor, [address] [place] [address] Allergies, Adverse Reactions, Alerts Substance Reaction Severity [...] Reference Physician Member Role: PCP Address: Address: [address] [place] [id number]- Name: Celia Rivera [place] Position: [facility] Member Role: Lifetime Consulting Physician Care Team Related Persons Name: EMMY HUNTLEY Address: home [address] [place] [address] Name: MAURY HNERIQUEZ Address: home [address] [place] [address]
--- OUTSIDE RECORDS SUMMARY | 2023-08-31 11:20 | XMS_ITS | Continuity of Care Document ---
Author Organization [facility] Address [address] [place] [address]- Care Team Providers Care Talent Acquisition Relationship Manager Name Role Phone Yong Tate MD Primary Care Physician En[place] [facility] [place] Date(s): 11/19/21 - 03/19/22 [facility] [address] [place] [address] Attending Physician: Jackie Richardson MD Admitting Physician: Jackie Richardson MD Allergies, Adverse Reactions, [...] Personnel Name: Yong Tate MD Address: Address: [address] [place] [id number]
--- OUTSIDE RECORDS SUMMARY | 2023-08-31 11:20 | XMS_ITS | Continuity of Care Document ---
Author Organization [facility] Address [address] [place] [address]- Care Team Providers Care Dealer Card Room Name Role Phone Homero Noel Primary Care Physician Encounter [facility] Date(s): 08/02/21 - 08/02/[address] [address]- Discharge Disposition: A-D/C Home Attending Physician: Dev Kent MD Admitting Physician: Dev Kent MD Referring Physician: Not on Staff, Referring MD Allergies, Adverse Reactions, Alerts Substance Reaction Severity Status Lipitor Active Zetia Persistent Severe Active Crestor Active Medications Fish Oil By Mouth, 0 Refills, Maintenance, 06/24/18 8:49:37 EST Start Date: 06/24/18 Status: Ordered Multivitamin Daily, 0 Refills, Maintenance, 06/24/18 8:49:30 EST Start Date: 06/24/18 Status: Ordered Repatha SureClick 140 mg/mL subcutaneous solution = 140 mg, Subcutaneous Injection, Every 14 days, # 2 each, 11 Refills, Maintenance, 04/07/21 9:41:00 EST, [employer], 175, cm, 04/05/21 9:05:00 EST, Height, 75, kg, 02/26/21 12:56:00 EDT, Dry Weight Start Date: 04/07/21 Stop Date: 04/02/22 Status: Ordered Vital Signs Most recent to oldest [Reference Range]: 1 2 Height 178 cm (08/02/21 2:06 PM) 178 cm (08/02/21 2:03 PM) Weight 75.8 kg (08/02/21 2:06 PM) 75.8 kg (08/02/21 2:03 PM) Oxygen Saturation [94-100 %] 100 % (08/02/21 2:03 PM) Pulse Rate [55-90 bpm] 93 bpm *H* (08/02/21 2:03 PM) Body Mass Index [18.5-24.99] 23.92 (08/02/21 2:03 PM) Blood Pressure [90-138/55-84 mm Hg] 140/ 71mm Hg *H* (08/02/21 2:03 PM) Respiratory Rate [16-30 br/min] 16 br/mi n (08/02/21 2:03 PM) Temperature [96.8-100.4 DegF] 98.5 DegF (08/02/21 2:03 PM) Mode of Delivery (Oxygen) Room air (08/02/21 2:03 PM) Blood pressure sites Arm, right (08/02/21 2:03 PM) Temperature Route Oral (08/02/21 2:03 PM) Dry Weight 75.8 kg (08/02/21 2:06 PM) 75.8 kg (08/02/21 2:03 PM) Dry Weight Obtained Via Standing scale (08/02/21 2:03 PM) Social History Social History Type Response Smoking Status Never smoker; Tobacc o user in household: No entered on: 08/17/17 Sex
--- OUTSIDE RECORDS SUMMARY | 2023-08-31 11:20 | XMS_ITS | Continuity of Care Document ---
Author Organization [facility] Address [address] [place] [address]- Care Team Providers Care Nuclear Instructor Name Role Phone Yong Tate MD Primary Care Physician Encounter [facility] [place] Date(s): 02/17/22 - 03/19/22 [facility] [address] [place] [address] Attending Physician: Maggie Lino Admitting Physician: Maggie [...] Personnel Name: Yong Tate MD Address: Address: [address] [place] [address]
--- OUTSIDE RECORDS SUMMARY | 2023-08-31 11:20 | XMS_ITS | Continuity of Care Document ---
Author Organization [facility] ter Address [address] [place] [address]- Care Team Providers Care Head Waiter Name Role Phone Not on Staff, PCP Primary Care Physician Unavail able Encounter [facility] [place] Date(s): 02/09/21 - 02/09/[address] [address]- Discharge Disposition: A-D/C Home Attending Physician: Kacie Snyder MD Admitting Physician: Kacie Snyder MD Referring Physician: Not on Staff, Referring MD Allergies, Adverse Reactions, Alerts Substance Reaction Severity Status Lipitor Active Crestor Active Medications Fish Oil By Mouth, 0 Refills, Maintenance, 06/24/18 8:49:37 EST Start Date: 06/24/18 Status: Ordered Multivitamin Daily, 0 Refills, Maintenance, 06/24/18 8:49:30 EST Start Date: 06/24/18 Status: Ordered Vital Signs Most recent to oldest [Reference Range]: 1 2 Oxygen Saturation [94-100 %] 100 % (02/09/21 7:41 AM) 100 % (02/09/21 7:34 AM) Pulse Rate [55-90 bpm] 90 bpm (02/09/21 7:41 AM) 120 bpm *H* (02/09/21 7:34 AM) Blood Pressure [90-138/55-84 mm Hg] 143/ 95mm Hg *H* (02/09/21 7:41 AM) Respiratory Rate [16-30 br/min] 16 br/mi n (02/09/21 7:41 AM) Temperature [96.8-100.4 DegF] 97.8 DegF (02/09/21 7:41 AM) Mode of Delivery (Oxygen) Room air (02/09/21 7:41 AM) Room air (02/09/21 7:34 AM) Blood pressure sites Arm, left (02/09/21 7:41 AM) Temperature Route Oral (02/09/21 7:41 AM) Social History Social History Type Response Smoking Status Never smoker; Tobacc o user in household: No entered on: 08/17/17 Sex
--- OUTSIDE RECORDS SUMMARY | 2023-08-31 11:20 | XMS_ITS | Continuity of Care Document ---
Author Organization [facility] ter Address [address] [place] [address]- Care Team Providers Care Bander Name Role Phone Homero Noel Primary Care Physician Encounter [facility] [place] ACCT R [id number] Date(s): 09/16/21 - 09/16/[address] [address]- Encounter Diagnosis Paresthesias(Final) - 09/16/21 Discharge Disposition: A-D/C Home Attending Physician: Pato Ramos MD Admitting Physician: Pato Ramos MD Referring Physician: Not on Staff, Referring [...] each, 11 Refills, Maintenance, 04/07/21 9:41:00 EST, [employer], 175, cm, 04/05/21 9:05:00 EST, Height, 75, kg, 02/26/21 12:56:00 EDT, Dry Weight Start Date: 04/07/21 Stop Date: 04/02/22 Status: Ordered Vital Signs Most recent to oldest [Reference Range]: 1 2 3 Height 178 cm (09/16/21 5:04 PM) 178 cm (09/16/21 2:50 PM) 178 cm (09/16/21 12:49 PM) Oxygen Saturation [94-100 %] 100 % (09/16/21 2:50 PM) 99 % (09/16/21 12:49 PM) 100 % (09/16/21 10:15 AM) Pulse Rate [55-90 bpm] 85 bpm (09/16/21 2:50 PM) 68 bpm (09/16/21 12:49 PM) 100 bpm *H* (09/16/21 10:15 AM) Blood Pressure [90-138/55-84 mm Hg] 120/69mm Hg (09/16/21 2:50 PM) 128/79mm Hg (09/16/21 12:49 PM) 151/83mm Hg *H* (09/16/21 10:15 AM) Respiratory Rate [16-30 br/min] 16 br/min (09/16/21 2:50 PM) 18 br/min (09/16/21 12:49 PM) 18 br/min (09/16/21 10:15 AM) Temperature [96.8-100.4 DegF] 98.6 DegF (09/16/21 10:15 AM) Mode of Delivery (Oxygen) room air (09/16/21 2:50 PM) Room air (09/16/21 12:49 PM) Room air (09/16/21 10:15 AM) Blood pressure sites Arm, right (09/16/21 2:50 PM) Arm, right (09/16/21 12:49 PM) Arm, right (09/16/21 10:15 AM) Temperature Route Oral (09/16/21 10:15 AM) Social History Social History Type Response Smoking Status Never smoker; Tobacc o user in household: No entered on: 08/17/17 Sex
--- OUTSIDE RECORDS SUMMARY | 2023-08-31 11:20 | XMS_ITS | Continuity of Care Document ---
Author Organization [facility] Address [address] [place] [address]- Care Team Providers Care Child Care Giver Name Role Phone Rich Chand MD Primary Care Physician [phone] Encounter [facility] [place] Date(s): 01/21/20 - 01/21/[address] [address]- [facility] Discharge Disposition: A-D/C Home Attending Physician: Gabe Edgar MD Admitting Physician: Gabe Edgar MD Referring Physician: Gabe Edgar MD Allergies, Adverse Reactions, Alerts Substance Reaction Severity Status Lipitor Active Crestor Active Medications Fish Oil By Mouth, 0 Refills, Maintenance, 06/24/18 8:49:37 EST Start Date: 06/24/18 Status: Ordered Multivitamin Daily, 0 Refills, Maintenance, 06/24/18 8:49:30 EST Start Date: 06/24/18 Status: Ordered Vital Signs Most recent to oldest [Reference Range]: 1 2 3 Height 175.26 cm (01/21/20 9:52 AM) 175.26 cm (01/19/20 12:17 PM) Weight 76 kg (01/21/20 9:52 AM) 79.55 kg (01/19/20 12:17 PM) Oxygen Saturation [94-100 %] 100 % (01/21/20 1:00 PM) 96 % (01/21/20 12:45 PM) 100 % (01/21/20 12:30 PM) Pulse Rate [55-90 bpm] 108 bpm *H* (01/21/20 9:52 AM) Body Mass Index [18.5-24.99] 24.74 (01/21/20 9:52 AM) 25.9 *H* (01/19/20 12:17 PM) Blood Pressure [90-138/55-84 mm Hg] 120/72mm Hg (01/21/20 1:00 PM) 144/75mm Hg *H* (01/21/20 12:45 PM) 131/67mm Hg (01/21/20 12:30 PM) Respiratory Rate [16-30 br/min] 18 br/min (01/21/20 1:01 PM) 24 br/min (01/21/20 1:00 PM) 17 br/min (01/21/20 12:45 PM) Temperature [96.8-100.4 DegF] 97.9 DegF (01/21/20 1:15 PM) 98.0 DegF (01/21/20 12:15 PM) 98.5 DegF (01/21/20 9:52 AM) Liters per Minute 5 L/min (01/21/20 12:15 PM) Mode of Delivery (Oxygen) Room air (01/21/20 12:30 PM) Simple face mask (01/21/20 12:15 PM) Room air (01/21/20 9:52 AM) Blood pressure sites Arm, right (01/21/20 12:15 PM) Arm, right (01/21/20 9:52 AM) Temperature Route Temporal (01/21/20 1:15 PM) Temporal (01/21/20 12:15 PM) Temporal (01/21/20 9:52 AM) Dry Weight 76 kg (01/21/20 9:52 AM) 79.55 kg (01/19/20 12:17 PM) Weight Obtained Via Standing scale (01/21/20 9:52 AM) Patient/family stated (01/19/20 12:17 PM) Dry Weight Obtained Via Standing scale (01/21/20 9:52 AM) Patient/family stated (01/19/20 12:17 PM) Social History Social History Type Response Smoking Status Never smoker; Tobacc o user in household: No entered on: 08/17/17 Sex
--- OUTSIDE RECORDS SUMMARY | 2023-08-31 11:20 | XMS_ITS | Continuity of Care Document ---
Author Organization [facility] Address [address] [place] [address]- Care Team Providers Care Home Theater Expert Name Role Phone Kayla CROWLEY, Homero Sexton Primary Care Physician Encounter [facility] Date(s): 02/24/21 - 03/26/21 [facility] [address] [place] [address]- [place] Allergies, Adverse Reactions, Alerts Substance Reaction Severity Status Lipitor Active Crestor Active Medications Fish Oil By Mouth, 0 Refills, Maintenance, 06/24/18 8:49:37 EST Start Date: 06/24/18 Status: Ordered Multivitamin Daily, 0 Refills, Maintenance, 06/24/18 8:49:30 EST Start Date: 06/24/18 Status: Ordered Social History Social History Type Response Smoking Status Never smoker; Tobacc o user in household: No entered on: 08/17/17 Sex
--- OUTSIDE RECORDS SUMMARY | 2023-08-31 11:20 | XMS_ITS | Continuity of Care Document ---
Author Organization [facility] Address [address] [place] [address]- Care Team Providers Care Concrete Block Layer Name Role Phone Homero Noel Primary Care Physician [phone] [place] [facility] [place] 08/04/21 - 09/03/21 [facility] [address] [place] [address]- Allergies, Adverse Reactions, Alerts Substance Reaction Severity [...] each, 11 Refills, Maintenance, 04/07/21 9:41:00 EST, [employer], 175, cm, 04/05/21 9:05:00 EST, Height, 75, kg, 02/26/21 12:56:00 EDT, Dry Weight Start Date: 04/07/21 Stop Date: 04/02/22 Status: Ordered Social History Social History Type Response Smoking Status Never smoker; Tobacc o user in household: No entered on: 08/17/17 Sex
--- OUTSIDE RECORDS SUMMARY | 2023-08-31 11:21 | XMS_ITS | Continuity of Care Document ---
Author Organization [facility] Address [address] [facility], [address] Floor, [address] [place] [address]- Care Team Providers Care Master Yacht Name Role Phone Yong Tate MD Primary Care Physician [place] [facility] [place] 10[place]17/22 - 11/16/22 [facility] [address] [facility] [address], 3rd Floor, [address] [place] [address] Allergies, Adverse Reactions, Alerts Substance Reaction [...] Reference Physician Member Role: PCP Address: Address: [address] [place] [address] Name: Celia Rivera MA Position: [facility] AMB [place] Member Role: Lifetime Consulting Physician Name: Lalita Riley Position: [facility] Outreach Member Role: Lifetime Consulting Physician Care Team Related Persons Name: EMMY HUNTLEY Address: home [address] [place] [address] Name: MAURY HENRIQUEZ Address: home [address] [place] [address]
--- OUTSIDE RECORDS SUMMARY | 2023-08-31 11:21 | XMS_ITS | Continuity of Care Document ---
Author Organization [facility] Address [address] [place] [address]- Care Team Providers Care Broadcast Meteorologist Name Role Phone Bebeto MOSES, Yong Moon Primary Care Physician [place] [facility] [place] Date(s): 06/29/21 - 10/27/21 [facility] [address] [place] [address]- Attending Physician: Jackie Richardson MD Referring Physician: Kayla CROWLEY, Homero Sexton Allergies, Adverse Reactions, Alerts Substance Reaction Severity [...] 10/07/21 8:54:00 EDT, Route to Pharmacy Electronically, [facility]/pharmacy #[id number], Partial fi... Start Date: 10/07/21 Stop Date: [...]
--- OUTSIDE RECORDS SUMMARY | 2023-08-31 11:21 | XMS_ITS | Continuity of Care Document ---
Author Organization [facility] Address Unknown Care Team Providers Care Program Or Project Administrator Name Role Phone Bebeto MOSES, Yong Moon Primary Care Physician Encounter [facility] [place] Date(s): 11/25/21 - 12/25/21 [facility] Allergies, Adverse Reactions, Alerts Substance Reaction [...] 10/07/21 8:54:00 EDT, Route to Pharmacy Electronically, [facility]/pharmacy #[id number], Partial fi... Start Date: 10/07/21 Stop Date: [...]
--- OUTSIDE RECORDS SUMMARY | 2023-08-31 11:21 | XMS_ITS | Continuity of Care Document ---
Author Organization [facility] [address], [address] [place] [address]- Care Team Providers Care Manager Radio Name Role Phone Yong Tate MD Primary Care Physician Encounter [facility] [place] Date(s): 04/25/22 - 05/02/22 [facility] [address] [place] [address] Drive, [address] [place], [place] [address] [place] Attending Physician: Jason Baig MD Referring Physician: Yong Tate MD Allergies, Adverse Reactions, Alerts Substance Reaction [...] Drug reaction Confirmed Active Hyperlipidemia Confirmed Active Vital Signs Most recent to oldest [Reference Range]: 1 Height 175 cm (04/25/22 3:18 PM) Weight 70.0 kg (04/25/22 3:18 PM) Body Mass Index [18.5-24.99 kg/m2] 22.86 kg/m2 (04/25/22 3:18 PM) Social History Social History Type Response Smoking Status Never smoker; Tobacc o user in household: No entered on: 08/17/17 Sex Patient Care team information Care Team Personnel Name: Yong Tate MD Position: Reference Physician Member Role: PCP Address: Address: [address] [place] [address]- Name: Celia Rivera MA Position: [facility] Member Role: Lifetime Consulting Physician Care Team Related Persons Name: EMMY HUNTLEY Address: home [address] [place] [address] Name: MAURY HENRIQUEZ Address: home [address] [place] [address]
--- OUTSIDE RECORDS SUMMARY | 2023-08-31 11:21 | XMS_ITS | Continuity of Care Document ---
Author Organization [facility] ter Address [address] [place] [address]- Care Team Providers Care Printed Circuit Board Panels Plater Name Role Phone Rich Chand MD Primary Care Physician Encounter [facility] [place] Date(s): 07/10/19 - 07/10/[address] [address]- [facility] Encounter Diagnosis Shingles(Final) - 07/10/19 Trigeminal neuralgia(Final) - 07/10/19 Discharge Disposition: A-D/C Home Attending Physician: Traci Duarte MD Admitting Physician: Traci Duarte MD Referring Physician: Not on Staff, Referring MD Allergies, Adverse Reactions, Alerts Substance Reaction Severity Status Lipitor Active Crestor Active Medications amitriptyline 10 mg oral tablet 10 mg, 1, tablet, By Mouth, Daily at bedtime, # 90 tablet, Refills 1, Tot. Refills 1, Maintenance, 08/13/18 15:26:28 EDT, Route to Pharmacy Electronically, [id number], [id number] Start Date: 08/13/18 Status: Ordered carbamazepine 200 mg oral capsule, extended release 1 capsule = 200 mg, By Mouth, 2 times a day, # 28 capsule, 0 Refills, Maintenance, 07/10/19 12:45:00 EST, CR Capsule, [facility][id number], 175, cm, 07/10/19 10:32:00 EST, Height, 77.1, kg, 07/10/19 10:32:00 EST, Dry Weight Start Date: 07/10/19 Stop Date: 07/24/19 Status: Ordered Fish Oil By Mouth, 0 Refills, Maintenance, 06/24/18 8:49:37 EST Start Date: 06/24/18 Status: Ordered Multivitamin Daily, 0 Refills, Maintenance, 06/24/18 8:49:30 EST Start Date: 06/24/18 Status: Ordered ondansetron 4 mg oral tablet, disintegrating 1 tablet = 4 mg, By Mouth, Every 8 hours, PRN Nausea & Vomiting, # 20 tablet, 0 Refills, Maintenance, 08/23/17 19:34:40 EDT, Tablet Start Date: 08/23/17 Stop Date: 08/30/17 Status: Ordered rifAXIMin 550 mg oral tablet 1 tablet = 550 mg, By Mouth, 3 times a day, # 42 tablet, 0 Refills, Maintenance, 05/28/18 14:30:00 EST Start Date: 05/28/18 Stop Date: 06/11/18 Status: Ordered Vital Signs Most recent to oldest [Reference Range]: 1 2 Height 175 cm (07/10/19 10:32 AM) 175 cm (07/10/19 10:19 AM) Weight 77.1 kg (07/10/19 10:32 AM) Oxygen Saturation [94-100 %] 98 % (07/10/19 10:32 AM) 99 % (07/10/19 10:18 AM) Pulse Rate [55-90 bpm] 95 bpm *H* (07/10/19 10:32 AM) 100 bpm *H* (07/10/19 10:18 AM) Body Mass Index [18.5-24.99] 25.18 *H* (07/10/19 10:32 AM) Blood Pressure [90-138/55-84 mm Hg] 134/ 85mm Hg (07/10/19 10:32 AM) Respiratory Rate [16-30 br/min] 16 br/mi n (07/10/19 10:32 AM) Temperature [96.8-100.4 DegF] 98.0 DegF (07/10/19 10:32 AM) Mode of Delivery (Oxygen) Room air (07/10/19 10:32 AM) Room air (07/10/19 10:18 AM) Blood pressure sites Arm, right (07/10/19 10:32 AM) Temperature Route Oral (07/10/19 10:32 AM) Dry Weight 77.1 kg (07/10/19 10:32 AM) Weight Obtained Via Standing scale (07/10/19 10:32 AM) Dry Weight Obtained Via Standing scale (07/10/19 10:32 AM) Social History Social History Type Response Smoking Status Never smoker; Tobacc o user in household: No entered on: 08/17/17 Sex
--- OUTSIDE RECORDS SUMMARY | 2023-08-31 11:21 | XMS_ITS | Continuity of Care Document ---
Author Organization [facility] Address Unknown Care Team Providers Care Mold Dresser Name Role Phone Yong Tate MD Primary Care Physician [place] [facility] [place](s): 10/20/21 - 10/27/21 [facility] Attending Physician: Isauro Herrera MD Referring Physician: Yong Tate MD Allergies, [...] 10/07/21 8:54:00 EDT, Route to Pharmacy Electronically, [facility]/pharmacy #[id number], Partial fi... Start Date: 10/07/21 Stop Date: [...]
--- OUTSIDE RECORDS SUMMARY | 2023-08-31 11:21 | XMS_ITS | Continuity of Care Document ---
Author Organization [facility] Address [address] [place] [address]- Care Team Providers Care Bog Cutter Name Role Phone Bebeto MOSES, Yong Moon Primary Care Physician Encounter [facility] [place] Date(s): 10/04/21 - 10/11/21 [facility] [address] [place] [address]- Encounter Diagnosis Hyperlipidemia(Discharge Diagnosis) - 10/04/21 Drug reaction(Discharge Diagnosis) - 10/04/21 Attending Physician: Jackie Richardson MD Referring Physician: [...] 10/07/21 8:54:00 EDT, Route to Pharmacy Electronically, [facility]/pharmacy #[id number], Partial fi... Start Date: 10/07/21 Stop Date: 04/05/22 Status: Ordered Multivitamin Daily, 0 Refills, Maintenance, 06/24/18 8:49:30 EST Start Date: 06/24/18 Status: Ordered Problem List Condition Effective Dates Status Health Status Inform ant Drug reaction(Confirmed) Active Hyperlipidemia(Confirmed) Active Diagnosis Diagnosis Type Effective Dates Health Status Cl inical Service Informant Hyperlipidemia Discharge Diagnosis 10/04/21 Drug reaction Discharge Diagnosis 10/04/21 Vital Signs Most recent to oldest [Reference Range]: 1 Height 178 cm (10/04/21 12:53 PM) Weight 74.2 kg (10/04/21 12:53 PM) Oxygen Saturation [94-100 %] 97 % (10/04/21 12:53 PM) Pulse Rate [55-90 bpm] 106 bpm *H* (10/04/21 12:53 PM) Body Mass Index [18.5-24.99] 23.42 (10/04/21 12:53 PM) Blood Pressure [90-138/55-84 mm Hg] 141/ 74mm Hg *H* (10/04/21 12:53 PM) Mode of Delivery (Oxygen) Room air (10/04/21 12:53 PM) Blood pressure sites Arm, left (10/04/21 12:53 PM) Weight Obtained Via Bed scale (10/04/21 12:53 PM) Social History Social History Type Response Smoking Status Never smoker; Tobacc o user in household: No entered on: 08/17/17 Sex
--- OUTSIDE RECORDS SUMMARY | 2023-08-31 11:21 | XMS_ITS | Continuity of Care Document ---
Author Organization [facility] Address [address] [place] [address]- Care Team Providers Care Railway Switchman Name Role Phone Yong Tate MD Primary Care Physician Encounter [facility] Date(s): 04/20/22 - 05/20/22 [facility] [address] [address] Attending Physician: Maggie Lino Admitting Physician: Maggie Lino Referring Physician: AdmtrMaggie Allergies, Adverse Reactions, Alerts [...] Reference Physician Member Role: PCP Address: Address: [address] [place] [address]- Name: Celia Rivera MA Position: [facility] Member Role: Lifetime Consulting Physician Care Team Related Persons Name: EMMY HUNTLEY Address: home [address] [place] [address] Name: MAURY HENRIQUEZ Address: home [address] [place] [address]
--- OUTSIDE RECORDS SUMMARY | 2023-08-31 11:21 | XMS_ITS | Continuity of Care Document ---
Author Organization [facility] Address [address] [place] [address]- Care Team Providers Care Patient Relations Director Name Role Phone Bebeto MOSES, Yong Moon Primary Care Physician En[place] [facility] 10/04/21 - 11/03/21 [facility] [address] [place] [address]- Attending Physician: Maggie Lino Admitting Physician: Admtr, Maggie Referring Physician: Admtr, Ar8 Allergies, Adverse Reactions, Alerts Substance Reaction Severity [...] 8:54:00 EDT, Route to Pharmacy Electronically, [facility]/pharmacy #[id number], Partial fi... Start Date: 10/07/21 Stop Date: [...]
--- OUTSIDE RECORDS SUMMARY | 2023-08-31 11:21 | XMS_ITS | Continuity of Care Document ---
Author Organization [facility] Address [address] [place] [address]- Care Team Providers Care Cabinet Maker Name Role Phone Bebeto MOSES, Yong Moon Primary Care Physician Encounter [facility] [place] Date(s): 10/12/21 - 11/11/21 [facility] [address] [address]- Attending Physician: Maggie Lino Admitting Physician: Maggie [...] 10/07/21 8:54:00 EDT, Route to Pharmacy Electronically, [facility]/pharmacy #[id number], Partial fi... Start Date: 10/07/21 Stop Date: [...]
--- OUTSIDE RECORDS SUMMARY | 2023-08-31 11:21 | XMS_ITS | Continuity of Care Document ---
Author Organization [facility] Address Unknown Care Team Providers Care Ux Researcher Name Role Phone Bebeto MOSES, Yong Moon Primary Care Physician [place] [facility] [place](s): 10/26/21 - 11/25/21 [facility] Allergies, Adverse Reactions, Alerts Substance [...] 10/07/21 8:54:00 EDT, Route to Pharmacy Electronically, [facility]/pharmacy #[id number], Partial fi... Start Date: 10/07/21 Stop Date: [...]
--- OUTSIDE RECORDS SUMMARY | 2023-08-31 11:21 | XMS_ITS | Continuity of Care Document ---
Author Organization [facility] Address [address] [place] [address]- Care Team Providers Care Manager Terminal Name Role Phone Bebeto MOSES, Yong Moon Primary Care Physician [place] [facility](s[place] 10/27/21 - 11/26/21 [facility] [address] [place] [address]- Allergies, Adverse Reactions, Alerts Substance Reaction Severity [...] 10/07/21 8:54:00 EDT, Route to Pharmacy Electronically, [facility]/pharmacy #[id number], Partial fi... Start Date: 10/07/21 Stop Date: [...]
--- OUTSIDE RECORDS SUMMARY | 2023-08-31 11:21 | XMS_ITS | Continuity of Care Document ---
Author Organization [facility] Address [address] [facility], [address] Floor, [address] [place] [address]- Care Team Providers Care Seconds Handler Name Role Phone Yong Tate MD Primary Care Physician En[place] [facility] [place]s): 05/05/22 - 06/04/22 [facility] [address] [facility], [address]rd Floor, [address] [place] [address] Attending Physician: Maggie Lino Admitting Physician: [...] Reference Physician Member Role: PCP Address: Address: [address] [place] [address]- Name: Celia Rivera MA Position: [facility] Member Role: Lifetime Consulting Physician Care Team Related Persons Name: EMMY HUNTLEY Address: home [address] [place] [address] Name: MAURY HENRIQUEZ Address: home [address] [place] [address]
--- OUTSIDE RECORDS SUMMARY | 2023-08-31 11:21 | XMS_ITS | Continuity of Care Document ---
Author Organization [facility] Address [address] [place] [address]- Care Team Providers Care Project Hire Name Role Phone Homero Noel Primary Care Physician Encounter [facility] [place] [facility] R [id number] Date(s): 04/05/21 - 04/12/21 [facility] [address] [place] [address]- Encounter Diagnosis Familial hyperlipidemia(Discharge Diagnosis) - 04/05/21 Elevated LDL cholesterol level(Discharge Diagnosis) - 04/05/21 Palpitation(Discharge Diagnosis) - 04/05/21 Attending Physician: Jackie Richardson MD Referring Physician: Homero Noel Allergies, Adverse Reactions, Alerts Substance Reaction Severity [...] each, 11 Refills, Maintenance, 04/07/21 9:41:00 EST, [employer], 175, cm, 04/05/21 9:05:00 EST, Height, 75, kg, 02/26/21 12:56:00 EDT, Dry Weight Start Date: 04/07/21 Stop Date: 04/02/22 Status: Ordered Problem List Diagnosis Diagnosis Type Effective Dates Health Status Clinical Service Informant Familial hyperlipidemia Discharge Diagnosis 04/05/21 Elevated LDL cholesterol level Discharge Diagnosis 04/05/21 Palpitation Discharge Diagnosis 04/05/21 Vital Signs Most recent to oldest [Reference Range]: 1 Height 175 cm (04/05/21 9:05 AM) Weight 76.0 kg (04/05/21 9:05 AM) Oxygen Saturation [94-100 %] 99 % (04/05/21 9:05 AM) Pulse Rate [55-90 bpm] 105 bpm *H* (04/05/21 9:05 AM) Body Mass Index [18.5-24.99] 24.82 (04/05/21 9:05 AM) Blood Pressure [90-138/55-84 mm Hg] 110/ 74mm Hg (04/05/21 9:05 AM) Temperature [96.8-100.4 DegF] 97.3 DegF (04/05/21 9:05 AM) Blood pressure sites Arm, right (04/05/21 9:05 AM) Temperature Route Temporal (04/05/21 9:05 AM) Social History Social History Type Response Smoking Status Never smoker; Tobacc o user in household: No entered on: 08/17/17 Sex
--- OUTSIDE RECORDS SUMMARY | 2023-08-31 11:21 | XMS_ITS | Continuity of Care Document ---
Author Organization [facility] Address [address] [place] [address]- Care Team Providers Care Bakery And Deli Sales Manager Name Role Phone Bebeto MOSES, Yong Moon Primary Care Physician [place] [facility] [place]s): 10/31/21 - 11/30/21 [facility] [address] [place] [address]- Allergies, Adverse Reactions, Alerts Substance Reaction Severity Status Lipitor Active Zetia Persistent Severe Active Rosuvastatin Calcium Active evolocumab Severe Active Crestor Active Medications Fish Oil By Mouth, 0 Refills, Maintenance, 06/24/18 8:49:37 EST Start Date: 06/24/18 Status: Ordered gabapentin 300 mg oral capsule 300 mg, 1, capsule, By Mouth, 3 times a day, start at bedtime, and then space out every 6-8 hours while awake, # 90 capsule, Refills 5, Tot. Refills 5, Maintenance, 10/07/21 8:54:00 EDT, Route to Pharmacy Electronically, [facility]/pharmacy #[id number], Partial fi... Start Date: 10/07/21 Stop Date: [...]
--- OUTSIDE RECORDS SUMMARY | 2023-08-31 11:21 | XMS_ITS | Continuity of Care Document ---
Author Organization [facility] Address [address] [place] [address]- Care Team Providers Care Assessment Counselor Name Role Phone Bebeto MOSES, Yong Moon Primary Care Physician Encounter [facility] [id number] Date(s): 03/09/22 - 03/09/[address] [address]- Discharge Disposition: A-D/C Walkout Attending Physician: Not on Staff, Attending MD Admitting Physician: Not on Staff, Admitting MD Referring Physician: Not on Staff, Referring [...] [Reference Range]: 1 2 Height 175 cm (03/09/22 5:17 PM) 175 cm (03/09/22 5:15 PM) Weight 72.4 kg (03/09/22 5:17 PM) 72.4 kg (03/09/22 5:15 PM) Oxygen Saturation [94-100 %] 99 % (03/09/22 5:15 PM) Pulse Rate [55-90 bpm] 97 bpm *H* (03/09/22 5:15 PM) Body Mass Index [18.5-24.99 kg/m2] 23.64 kg/m2 (03/09/22 5:15 PM) Blood Pressure [90-138/55-84 mm Hg] 145/ 83mm Hg *H* (03/09/22 5:15 PM) Respiratory Rate [16-30 br/min] 18 br/mi n (03/09/22 5:15 PM) Temperature [96.8-100.4 DegF] 98.3 DegF (03/09/22 5:15 PM) Mode of Delivery (Oxygen) Room air (03/09/22 5:15 PM) Temperature Route Temporal (03/09/22 5:15 PM) Dry Weight 72.4 kg (03/09/22 5:17 PM) 72.4 kg (03/09/22 5:15 PM) Weight Obtained Via Standing scale (03/09/22 5:15 PM) Dry Weight Obtained Via Standing scale (03/09/22 5:15 PM) Social History Social History Type Response Smoking Status Never smoker; Tobacc o user in household: No entered on: 08/17/17 Sex Patient Care team information Personnel Name: Bebeto MOSES, Yong Moon Address: Address: [address] [place] [address]
== END 2023-08-31 13:38 | disposition home or self-care (01) ==
LOC: HO.HGI 11:18
PROVIDERS: PCP Family Medicine; Visit Provider Internal Medicine Gastroenterology
DX: K20.90 Esophagitis, unspecified without bleeding (principal)
CPT/HCPCS: 99213

== ENCOUNTER → 2023-08-31 11:18 | Outpatient (BNVA) | payer OTHER, SELFPAY | PROVIDERS: PCP Family Medicine; Visit Provider Internal Medicine Gastroenterology ==

== ENCOUNTER 2024-06-23 10:43 | Outpatient (AMB) | payer OTHER, SELFPAY ==
--- NOTE | 2024-06-23 11:03 | A.OFFVIS_ITS ---
Vital Signs 06/23/24 11:11 Height 5 ft 9 in Weight 165 lb BMI 24.4 BP 141/86 H Blood Pressure Location Lt brachial Position Sitting Pulse 103 H Intake Visit Reasons: 10 month follow up Intake Note: Oswaldo presents in the office as a 10 month follow up. CC: As a burning in the side of his tongue - states that he is not sure acid related. HE states he has been doing blood platelettes and he states that it has healed so much so quick with his soft tissue damage. Party Plan Selling Distributor Required: No Allergies Zbenvoo-HWR-ZeD Reductase Inhibitor [Hywmowu-Ezi-Jgl Reductase Inhibitor] Allergy (Mild, Verified 06/23/24 11:08) unknown HPI HPI 10 month follow up: Details: 49 yr old m being called for f/u RECAP He has hx of sibo had EGD 06/2022 with erosive gastritis, esophagitis and duodenitis Path:active esophagitis and moderate chronic esophagitis Rept EGD 10/10--improvement in the esophagitis REPT EGD : 08/11 normal esophagus erosive gastritis INTERIM: he feels good he saw PT and had treatment for myofascial pain he has burning sensation both sides and back of throat he has bad taste in mouth no smell issues no double vision, no headaches no arm or leg weakness no slurred speech he has not been taking lansoprazole EXAM: GENERAL: The patient is well developed and nontoxic. VITAL SIGNS:see workflow HEENT: Nonicteric sclerae, PERRLA, EOMI. Oropharynx clear. Moist mucous membranes. Conjunctivae appear well perfused. No thyroid mass. CHEST: Chest wall is nontender. HEART: Regular rate and rhythm without murmurs. LUNGS: Clear to auscultation bilaterally. ABDOMEN: Soft, positive bowel sounds, nontender, no organomegaly.no flank tenderness SKIN: No rash, no excessive bruising, petechiae, or purpura. NEUROLOGIC: Cranial nerves II-XII intact without motor/sensory deficit. Psych: normal affect A/P: 1/ Esophagitis, 2/ erosive gastritis -- PLAN: 1/ advised to take lansoprazole daily, see if helps sx, also check vitmains incl B12 2/ repeat EGD [facility] Medical History Erosive gastritis Small intestinal bacterial overgrowth (SIBO) Surgical History H/O oral surgery [place] teeth removed H/O shoulder surgery Hx of tonsillectomy History of esophagogastroduodenoscopy (EGD) Hx of colonoscopy Social History Patient Tobacco Use Status: Never used Tobacco Physical Exam Vital Signs: Last Vital Signs Pulse 103 H 06/23/24 11:11 BP 141/86 H 06/23/24 11:11 BMI result Body Mass Index 24.4 Assessment & Plan Assessment & Plan (1) Malnutrition: Code(s): E46 - Unspecified protein-calorie malnutrition Category: Medical Plan: see above Orders: Orders Complete Blood Count Auto Diff Today E46 - Unspecified protein-calorie malnutrition Vitamin B12 and Folate Today E46 - Unspecified protein-calorie malnutrition Vitamin B3 (Niacin) Today E46 - Unspecified protein-calorie malnutrition Vitamin B6 Today E46 - Unspecified protein-calorie malnutrition Vitamin C Today E46 - Unspecified protein-calorie malnutrition Comprehensive Met. Panel Today E46 - Unspecified protein-calorie malnutrition, K75.81 - Nonalcoholic steatohepatitis (LANDEROS) Ferritin Today E46 - Unspecified protein-calorie malnutrition Vitamin B1 Today E46 - Unspecified protein-calorie malnutrition Vitamin A Today E46 - Unspecified protein-calorie malnutrition Vitamin B5 (Pantothenic Acid) Today E46 - Unspecified protein-calorie malnutrition Coding Level of Care Code Est Pt Level 3 (70877) Diagnoses Malnutrition E46
[2024-06-23 11:11] VITALS: BP 141/86; PULSE 103; BMI 24.4
--- OUTSIDE RECORDS SUMMARY | 2024-06-23 11:35 | XMS_ITS | Clinical Summary ---
Author Organization [address] Address [address] [place] [phone] Phone Care Team Providers Care Heart Specialist Name Role Phone Bernice Daniela Primary Care Provider [phone] Allergies Active Allergy Reactions Criticality Noted Date Comments Clindamycin 02/25/2022 Other Reaction(s): Rash/Dermatitis Skin on palm peeling Doxycycline Dizziness,Other,Whee z ing High 02/03/2022 Other Reaction(s): Myalgia and Joint Pain OTHER: increased paresthesia, burning skin . Evolocumab 11/30/2021 Tingling in hands, burning in legs Ezetimibe 04/24/2017 Rosuvastatin Calcium 08/09/2006 chest pain Medications Medication Sig Dispensed Refills Start Date End Date Status multivitamin with minerals (MULTIPLE VITAMIN-MINERALS ORAL) Take 1 Tablet by mouth daily. Active OMEGA-3 FATTY ACIDS ORAL Take by mouth. 1 tablespoon Daily Active EPINEPHrine (EpiPen 2-Del) 0.3 mg/0.3 mL injection ADMINISTER 1 PEN INJECTOR SUBCUTANEOUSLY DIRECTED 07/11/2023 Active oxyCODONE (OXY-IR) 5 mg immediate release capsule Take 1 capsule (5 mg total) by mouth every 6 (six) hours if needed for severe pain. 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 Normal esophagoscopy 2012. Familial hyperlipidemia, high LDL 02/09/2005 Encounters Date Type Department Care Team Description [facility] [place] [phone] Anais Daniel DO Faxed Order ([facility] (Progress Note 05/29/24)) 05/20/2024 [facility] [place] [phone] Anais Daniel DO fax order 04/16/2024 [facility] [place] [phone] Anais Daniel DO Faxed Order ([facility] (Progress Note 04/14)) from Last 3 Months Immunizations Name Administration Dates Next Due Tdap Tetanus diptheria acell ular pertussis (Boostrix; Adacel) 7yo and older 02/25/2008 Surgical History Surgery Date Site/Laterality Comments ESOPHAGOGASTRODUODENOSCOPY 06/28/2006 PROCEDURE: [place] ESOPHAGOGASTRODUODENOSCOPY TRANSORAL DIAGNOSTIC; COMMENT: Dr Marin: normal EGD to second part of the duodenum OTHER SURGICAL HISTORY 07/26/2012 PROCEDURE: [place] ESOPHAGOSCOPY FLEXIBLE TRANSORAL DIAGNOSTIC; COMMENT: normal esophagus on PPI rx. OTHER SURGICAL HISTORY 06/05/2017 PROCEDURE: OUTSIDE ENDOSCOPY; COMMENT: normal COLONOSCOPY 06/05/2017 PROCEDURE: OUTSIDE COLONOSCOPY; COMMENT: normal Medical History Medical History Date Comments IBS (irritable bowel syndrome) 04/11/2017 D X:IBS (irritable bowel syndrome) Cervical radicular pain 05/11/2016 DX:Cervi munir radicular pain Cervical spinal stenosis 06/08/2016 DX:Cerv ical spinal stenosis Cervical spondylosis 06/08/2016 DX:Cervical spondylosis GERD (gastroesophageal reflux disease) 10/19/2008 DX:GERD (gastroesophageal reflux disease); COMMENT: Normal EGD 2006. Normal esophagoscopy 2012. History of MRSA infection 11/02/2014 DX:His tory of MRSA infection; COMMENT: 10/2014--treated with Clindamycin 300 mg TID x 10 days Hyperlipidemia 02/09/2005 DX:Hyperlipidemi a Family History Medical History Relation Name Comments Hypertension Mother Other: HEART DISEASE Other MATERNA L GRANDPARENTS Relation Name Status Comments Mother Other Social History Tobacco Use Types Packs/Day Years Used Date Smoking Tobacco: Never Smokeless Tobacco: Never Alcohol Use Standard Drinks/Week Comments Not Currently 0 (1 standard drink = 0.6 oz pur e alcohol) Sex and Gender Information Value Date Recorded Sex Assigned at Not on file Gender Identity Not on file Sexual Orientation Not on file Job Start Date Occupation Industry Not on file Not on file Not on file Obstetrics History Last Filed Vital Signs Vital Sign Reading Time Taken Comments Blood Pressure 113/76 01/25/2024 4:08 PM EDT Pulse 95 01/25/2024 4:08 PM EDT Temperature - - Respiratory Rate - - Oxygen Saturation - - Inhaled Oxygen Concentration - - Weight 75.4 kg (166 lb 3.2 oz) 01/25/2024 4:08 P M EDT Height 175.3 cm (5' 9 ) 01/25/2024 4:08 PM EDT Body Mass Index 24.54 01/25/2024 4:08 PM EDT Plan of Treatment Health Maintenance Due Date Last Done Comments Hepatitis B Vaccines (1 of 3 - 19+ 3-dose series) 02/01/1992 DTaP,Tdap,and Td Vaccines (2 - Td or Tdap) 02/24/2018 02/25/2008 Depression Screening 04/29/2022 HIV Screening 04/29/2022 Social Influencers of Health Screening 04/29/2022 Zoster Vaccines (1 of 2) 2023 COVID-19 Vaccine (1 - 2023-2 5 season) 2024 Influenza Vaccine (#1) 2024 Colorectal Cancer Screening: Colonoscopy 06/05/2027 06/05/2017 Cholesterol Screening (Lipid Panel) 08/27/2028 08/28/2023 Hepatitis C Screening Completed 11/04/2018 HIB Vaccines Aged Out No longer eligi ble based on patient's age to complete this topic HPV Vaccines Aged Out No longer eligi ble based on patient's age to complete this topic Hepatitis A Vaccines Aged Out No long er eligible based on patient's age to complete this topic IPV Vaccines Aged Out No longer eligi ble based on patient's age to complete this topic MMR Vaccines Aged Out No longer eligi ble based on patient's age to complete this topic Meningococcal ACWY Vaccine Aged Out N o longer eligible based on patient's age to complete this topic Pneumococcal Vaccine: Pediat rics (0 to 5 Years) and At-Risk Patients (6 to 64 Years) Aged Out No longer eligi ble based on patient's age to complete this topic RSV Immunization Patients Un verna 20 months Aged Out No longer eligible b ased on patient's age to complete this topic Varicella Vaccines Aged Out No longer eligible based on patient's age to complete this topic Procedures Procedure Name Priority Date/Time Associated Diagnosis Comments EXTERNAL CLINICAL LAB 04/16/2024 EXTERNAL CLINICAL LAB 04/16/2024 LIPID PANEL Routine 08/28/2023 HEPATITIS C SCREENING Routine 11/04/2018 COLONOSCOPY Routine 06/05/2017 from Last 3 Months or Most Recently Relevant to Health Maintenance Results * External clinical lab (04/16/2024) Only the most recent of2 resultswithin the time period is included. Provider Y[facility] LAB BLOOD ORDERA BLES * (ABNORMAL) Lipid panel (08/28/2023) Pathologist [facility] LDL/HDL Ratio 4 0 - 4 Triglycerides 170(A) 0 - 150 mg/dL Cholesterol 197 0 - 200 mg/dL HDL 52 40 mg/dL LDL Cholesterol 111(A) 0 - 100 mg/dL Blood Venous blood specimen / Unknown Historical Provider LAB BLOOD ORDERAB LES * Hepatitis C Screening (11/04/2018) Pathologist [facility] Hepatitis C Screening Abstracted Historical Provider MD VIKTORIA CALLAHAN E * Colonoscopy (06/05/2017) Pathologist [facility] Colonoscopy No Interpretation , Abstracted Anatomical Region Laterality Modality Other Historical Provider MD VIKTORIA Mcelroy from Last 3 Months or Most Recently Relevant to Health Maintenance Care Teams Heart Specialist Relationship Specialty Start Date End Date Anais Daniel DO [address] [place], [place] [address] [address] PCP - General 03/05/24
--- OUTSIDE RECORDS SUMMARY | 2024-06-23 11:35 | XMS_ITS | Clinical Summary ---
Author Organization [facility] Address [address] [facility] [place] [address] Care Team Providers Care Ginger Farmer Name Role Phone No, Pcp FISHER QUAHOG Primary Care Provider Unavailabl e Social History Tobacco Use Types Packs/Day Years Used Date Smoking Tobacco: Never Assessed Sex and Gender Information Value Date Recorded Sex Assigned at Not on file Legal Sex Male 11:54 AM EDT Gender Identity Not on file Sexual Orientation Not on file Plan of Treatment Health Maintenance Due Date Last Done Comments Colorectal Cancer: COLONOSCO PY Screening every 10 yrs (or Modifier) 1973 Depression: Screening Annual ly using PHQ-2/9 in Adults 18 yrs or above (or HM Modifier)([facility]) 1991 Hepatitis C Virus Infection in Adolescents and Adults: Screening (or Modifier) ([facility]) 1991 SDOH Screening Reminder: Fe khan for all adults ([facility]) 1991 Tobacco Smoking Cessation: i n Adults excluding Women: Behavioral and Pharmacotherapy Interventions ([facility]) 1991 DTaP/Tdap/Td Vaccines ([facility]) (1 - Tdap) 02/01/1992 Lipid Screening: Every 5 yrs for Men aged 35+ (or HM Modifier) ([facility]) 2009 Colorectal Cancer Screening 45 -75 Yrs (or HM Modifier) 2018 Colorectal Cancer: FLEXIBLE SIGMOIDOSCOPY Screening every 5 yrs 2018 Colorectal Cancer: Fecal Immunochemical Test (FIT) Annually [facility] 2018 Colorectal Cancer: High-sens itivity gFOBT Screening Annually [facility] 2018 Colorectal Cancer: Stool Col oguard Screening every 3 yrs 2018 Colorectal Cancer:CT Colonog kinza Screening every 5 yrs 2018 Zoster/Shingles Vaccine Seri es Screening: Adults aged 18+ yrs (or HM Modifiers)([facility]) (1 of 2) 2023 Flu Vaccination: Yearly for ages 18mos through 64 years (or Modifier)([facility]) 12/20/2023 COVID-19 Vaccine Screening: Initial Series and Booster Status ([facility]) (2023- season) 2024 Pneumococcal Vaccination Scr eening: Pts 0-19 & 19-64 yrs of age ([facility]) Aged Out No longer eligible based on patient's age to complete this topic Medical Devices Not on file Insurance [facility] [place] [address] Care Teams Ginger Farmer Relationship Specialty Start Date End Date No, Pcp, FISHER QUAHOG N/A Do not use PCP - General Family Medicine 08/17/20
--- OUTSIDE RECORDS SUMMARY | 2024-06-23 11:35 | XMS_ITS | Clinical Summary ---
Author Organization [facility] Address [phone] [facility] [place] [address] Care Team Providers Care Contract Administrator Name Role Phone Yong Ttae MD Primary Care Provider Encounters Date Type Department Care Team Description 04/10/2024 2:14 PM EST - 04/10/2024 11:59 PM EST Hospital Encounter [facility] Specimen [facility] [address] [place] [address] Barbra Worrell MD Discharge Disposition: Home or Self Care 04/10/2024 Transcribe Orders [facility] Specimen Processing [address] [place] [address] Barbra Worrell MD Chronic conjunctivitis of right eye, unspecified chronic conjunctivitis type (Primary Dx) from Last 3 Months Social History Tobacco Use Types Packs/Day Years Used Date Smoking Tobacco: Never Assessed Education Answer Date Recorded Are you interested in more education? Not on holly e 09/16/2022 Are you concerned about learning? Not on file 09/16/2022 No 09/16/2022 No 09/16/2022 Digital Access Answer Date Recorded No 10/17/2022 No 10/17/2022 Reliable internet access at home? Not on file 10/17/2022 Device with a working camera? Not on file Sex and Gender Information Value Date Recorded Sex Assigned at Male 11/04/2021 11:49 AM EDT Gender Identity Male 11/04/2021 11:49 AM EDT Sexual Orientation Straight 11/04/2021 11 :49 AM EDT Plan of Treatment Health Maintenance Due Date Last Done Comments Adult Td,Tdap Booster 1973 LIPID PANEL 1973 DEPRESSION SCREENING 1985 SMOKING Hx and SMOKELESS TOB ACCO SCREENING 1986 HEPATITIS B SCREENING 1991 HEPATITIS C SCREENING 1991 HIV ONE-TIME SCREENING (18-6 5 YEARS) 1991 HEPATITIS B VACCINES (1 of 3 - 19+ 3-dose series) 02/01/1992 COLOGUARD 2018 COLONOSCOPY 2018 COLORECTAL CANCER SCREENING 2018 FIT TEST 2018 FOBT 2018 SIGMOIDOSCOPY 2018 VIRTUAL COLONOSCOPY 2018 PNEUMOCOCCAL VACCINES (50+ y ears) (1 of 1 - PCV) 2023 ZOSTER VACCINES (1 of 2) 2023 INFLUENZA VACCINE (#1) 2023 COVID-19 VACCINE (1 - 2023-2 5 season) 2024 HEPATITIS A VACCINES Aged Out No long er eligible based on patient's age to complete this topic HIB VACCINES Aged Out No longer eligi ble based on patient's age to complete this topic MENINGOCOCCAL VACCINES (ACWY) Aged Out No longer eligible based on patient's age to complete this topic Medical Devices Not on file Procedures Procedure Name Priority Date/Time Associated Diagnosis Comments EYE CULTURE Routine 04/10/2024 11:00 AM EST Chronic conjunctivitis of right eye, unspecified chronic conjunctivitis type from Last 3 Months Results * (ABNORMAL) EYE CULTURE (04/10/2024 11:00 AM EST) Special Requests None 04/10/2024 2:17 PM [facility] GRAM STAIN NO ORGANISMS SEEN 024 1:33 PM [facility] Eye Culture Rare STAPHYLOCOCCUS EPIDERMIDIS(A) 04/15/2024 10:20 AM [facility] Eye Culture STAPHYLOCOCCUS EPIDERMIDIS of a second type Staphylococcus sp. with a vancomycin CHARISMA >=2 may indicate this is not a reliable therapeutic option. ID consult for appropriate treatment is recommended.(A) 04/15/2024 10:20 AM [facility] Other (Eye) 04/10/2024 11:0 0 AM EST 04/10/2024 2:18 PM EST Comment:CONJUCTIVA OD AND OS Narrative Organism Antibiotic Method Susceptibility Staphylococcus epidermidis Cefoxitin CHARISMA METHOD Negative Staphylococcus epidermidis Penicillin G CHARISMA METHOD >=0.5: Resistant Staphylococcus epidermidis Oxacillin(methicillin) CHARISMA METHOD <=0.25: Susceptible Staphylococcus epidermidis Gentamicin CHARISMA METHOD <=0.5: Susceptible Staphylococcus epidermidis Levofloxacin CHARISMA METHOD <=0.12: Susceptible Staphylococcus epidermidis inducible clindamycin CHARISMA M ETHOD Negative Staphylococcus epidermidis Erythromycin CHARISMA METHOD <=0.25: Susceptible Staphylococcus epidermidis Clindamycin CHARISMA METHOD 2: Intermediate Staphylococcus epidermidis Vancomycin CHARISMA METHOD <=0.5: Susceptible Staphylococcus epidermidis Tetracycline CHARISMA METHOD 2: Susceptible Staphylococcus epidermidis Rifampin CHARISMA METHOD <=0.5: Susceptible Staphylococcus epidermidis Amoxicillin + Clavulanate M IC METHOD Susceptible Staphylococcus epidermidis Ampicillin + Sulbactam CHARISMA METHOD Susceptible Staphylococcus epidermidis Cefuroxime CHARISMA METHOD Susceptible Staphylococcus epidermidis Cefotaxime CHARISMA METHOD Susceptible Staphylococcus epidermidis Ceftriaxone CHARISMA METHOD Susceptible Comment: Staphylococcus epidermidis Cefoxitin CHARISMA METHOD Positive Staphylococcus epidermidis Penicillin G CHARISMA METHOD >=0.5: Resistant Staphylococcus epidermidis Oxacillin(methicillin) CHARISMA METHOD >=4: Resistant Staphylococcus epidermidis Gentamicin CHARISMA METHOD <=0.5: Susceptible Staphylococcus epidermidis Levofloxacin CHARISMA METHOD <=0.12: Susceptible Staphylococcus epidermidis inducible clindamycin CHARISMA M ETHOD Negative Staphylococcus epidermidis Erythromycin CHARISMA METHOD <=0.25: Susceptible Staphylococcus epidermidis Clindamycin CHARISMA METHOD <=0.25: Susceptible Staphylococcus epidermidis Linezolid CHARISMA METHOD 1: Susceptible Staphylococcus epidermidis Vancomycin CHARISMA METHOD 2: Susceptible Staphylococcus epidermidis Tetracycline CHARISMA METHOD 2: Susceptible Staphylococcus epidermidis Rifampin CHARISMA METHOD <=0.5: Susceptible Staphylococcus epidermidis Amoxicillin + Clavulanate M IC METHOD Resistant Staphylococcus epidermidis Ampicillin + Sulbactam CHARISMA METHOD Resistant Staphylococcus epidermidis Cefuroxime CHARISMA METHOD Resistant Staphylococcus epidermidis Cefotaxime CHARISMA METHOD Resistant Staphylococcus epidermidis Ceftriaxone CHARISMA METHOD Resistant Comment: Barbra Worrell MD MICROBIOLOGY - GENER AL ORDERABLES [address] [address] from Last 3 Months Care Teams Contract Administrator Relationship Specialty Start Date End Date Yong Tate MD PCP - General Family Medicine 11/04/21 Additional Source Comments The information contained in this document represents components of the legal health record. It is not the complete legal health record.[facility]
--- OUTSIDE RECORDS SUMMARY | 2024-06-23 11:36 | XMS_ITS | Encounter Summary ---
Author Organization [facility] Address [address] [place] [address] Care Team Providers Care Critical Systems Technician Name Role Phone Anais Daniel DO Primary Care Provider [phone] Reason for Visit * Reason Onset Date Comments Faxed Order 05/29/2024 AT (Progress No te 05/29/24) Encounter Details Date Type Department Care Team (Late st Contact Info) Description 05/29/2024 Telephone Internal Medicine - [facility] [address] [place] [address] Anais Daniel DO [address] [place] [address] Faxed Order (AT (Progress Note 05/29/24)) Social History Tobacco Use Types Packs/Day Years [...] file Not on file Not on file documented as of this encounter Progress Notes * Jaimee Jaramillo MA - 06/03/2024 4:37 PM EST Signed and Faxed * Toshia Martinez - 05/29/2024 2:25 PM EST Orders from [facility] placed in [facility], DO bin. Please complete and fax back to [phone]. Thank you. documented in this encounter Plan of Treatment Not on file documented as of this encounter Visit Diagnoses Not on filedocumented in this encounter Care Teams Critical Systems Technician Relationship Specialty Start Date End Date Anais Daniel DO [address] [place] [address] PCP - General 03/05/24 documented as of this encounter
--- OUTSIDE RECORDS SUMMARY | 2024-06-23 11:36 | XMS_ITS | Encounter Summary ---
Author Organization [facility] Address [address] [place] [address] Care Team Providers Care Director Airport Name Role Phone Anais Daniel DO Primary Care Provider [phone] Reason for Visit * Reason Onset Date Comments fax order 05/20/2024 Encounter Details Date Type Department Care Team ([facility] Contact Info) Description 05/20/2024 Telephone Internal Medicine - [facility] [address] [place] [address] Anais Daniel DO [address] [place] [address] fax order Social History Tobacco Use Types Packs/Day Years [...] as of this encounter Progress Notes * Xin Bernstein - 05/20/2024 9:28 AM EST Order from [facility] placed in Anais Daniel DO Bin. Please sign, date, and fax back to [phone]. Thank you documented in this encounter Plan of Treatment Not on file documented as of this encounter Visit Diagnoses Not on filedocumented in this encounter Care Teams Director Airport Relationship Specialty Start Date End Date Anasi Daniel DO [address] [place] [address] PCP - General 03/05/24 documented as of this encounter
--- OUTSIDE RECORDS SUMMARY | 2024-06-23 11:36 | XMS_ITS | Data Portability ---
Author Organization [place] - [facility], Allergy Address [address] [place] [address] Care Team Providers Care Administration Vice President Name Role Phone ONESIMO CHANCE Primary Care Provider Assessment Encounter Date Assessment Date Assessment LastModified by Organization Details LastModified Time 10/19/2023 10/19/2023 Administered By: MAURA Hope Use of Antihistamines: Yes If yes: Vial Test Change in medications: No If yes ?? Increase in asthma symptoms If yes, inhaler use: Reaction to last injections: No If yes: ?? Allergy Symptoms: Other: ?? Missed 1 week Yes 3 weeks Dose Decreased Notes:?? [email or web address] Not available 10/19/2023 10:18:47 10/26/2023 10/26/2023 Administered By: MAURA Hope Use of Antihistamines: No If yes: Vial Test Change in medications: No If yes ?? Increase in asthma symptoms If yes, inhaler use: Reaction to last injections: No If yes: ?? Allergy Symptoms: Other: ?? Missed 1 week Dose Notes:?? [email or web address] Not available 10/26/2023 10:50:39 04/22/2024 04/22/2024 49-year-old male presents for pain and pressure in his ears. Otologic exam reveals normal cerumen on the right side which was removed. Canals without sign of infection or inflammation. TMs normal to inspection with well aerated middle ear space. There is exquisite tenderness to palpation of TMJ bilaterally and crepitus is noted. Examination of the oral cavity reveals recent dental work but no sign of oropharyngeal lesion. Neck without mass or adenopathy. Audiometric testing was obtained today. Results show normal hearing and tympanometry bilaterally. Given normal otologic exam and exquisite tenderness to palpation of TMJ I have advised that the pain and pressure he is experiencing in his ears is referred from the jaw. This is likely an unfortunate sequela of his dental procedures. He will continue to work with his oral surgeon. TMJ precautions were discussed in detail. He will call for reevaluation if he experiences any pain or difficulty swallowing, voice changes, or other red flag symptoms. Otherwise, he may follow-up as needed. [email or web address] Not available 04/22/2024 14:23:24 Plan of Treatment Reminders Order Date Submit Date Provider Last Modified By Organization Details Last Modified Time Details Appointments None record ed. Lab None record ed. Referral None record ed. Procedures None record ed. Surgeries None record ed. Imaging None record ed. Medication Orders None record ed. Patient TargetsNo targets recorded. Patient InstructionsNo instructions recorded. Reason for Referral None Reported. Results Created Date Observation Date Name Description Value Unit Range Abnormal Flag Note LastModifiedBy Organization Detail LastModifiedTime 01/08/20 24 06/12/2023 imagi ng/di agnos tic resul t No observ ation record ed. [email or web address] Not Available 21:31:47 01/08/20 24 03/30/2021 imagi ng/di agnos tic resul t No observ ation record ed. [email or web address] Not Available 21:33:38 04/23/20 audio gram No observ ation record ed. BARCODE Not Available 2023 13:27:00 Result Notes None recorded. Problems Name Problem SNOMED Code Status Onset Date Resolution Date Notes Provider Name and Address Organization Details Recorded Time Disorder of smell 847759172 Active 2020 Other disturban simba of smell and taste; Note: Date Diagnosed : 01/19/2021 11:53 AM (R43.8) Not Available [facility] 4 02:16:01 Disorder of taste 094326345 Active 2020 Other disturban simba of smell and taste; Note: Date Diagnosed : 01/19/2021 11:53 AM (R43.8) Not Available [facility] 4 02:16:01 Nasal congestio n 73287872 Active 2018 Nasal congestio n; Note: Date Diagnosed : 12/11/2018 2:30 PM (R09.81) Not Available [facility] 4 02:16:04 Chronic maxillary sinusitis 56689740 Active 2020 Chronic maxillary sinusitis ; Note: Date Diagnosed : 03/28/2021 2:29 PM (J32.0) Not Available [facility] 4 02:16:04 Deviated nasal septum 304809294 Active 2020 Deviated nasal septum; Note: Date Diagnosed : 01/19/2021 11:53 AM (J34.2) Not Available [facility] 4 02:15:50 Allergic rhinitis 08799294 Active 2018 Other allergic rhinitis; Note: Date Diagnosed : 12/11/2018 2:30 PM (J30.89) Note: Date Diagnosed : 12/11/2018 2:30 PM (J30.89) Not Available [facility] 4 00:55:06 Impacted cerumen in left ear [id number] 75371 Active 2022 Impacted cerumen, left ear; Note: Date Diagnosed : 02/22/2023 5:02 PM (H61.22) Not Available [facility] 4 02:15:55 Itching of skin 958735056 Active 2022 Other pruritus; Note: Date Diagnosed : 02/16/2023 3:50 PM (L29.8) Not Available [facility] 4 02:15:33 Benign paroxysma l positiona l vertigo 740036415 Active 2020 Benign paroxysma l vertigo, left ear; Note: Date Diagnosed : 02/22/2021 10:31 AM (H81.12) Not Available [facility] 4 02:15:33 Perennial allergic rhinitis 982689386 Active 2023 RICHIE MARQUES, [address],[place] [address], [place], [address] , [facility] - [facility] 4 10:18:00 Bleeding from nose 821983096 Active 2023 Epistaxis ; Note: Date Diagnosed : 07/11/2023 2:41 PM (R04.0) Not Available [facility] 4 02:15:49 Snoring 25038889 Active 2023 Snoring; Note: Date Diagnosed : 08/09/2023 3:15 PM (R06.83) Not Available [facility] 4 02:15:58 Hypochond riasis 32488699 Active 2023 Illness anxiety disorder; Note: Date Diagnosed : 07/11/2023 3:06 PM (F45.21) Not Available [facility] 4 02:15:58 Arthralgi a of temporoma ndibular joint 44283004 Active 2023 MAREK MURCIA PA-C [address], [place], [address] , [place] - [facility] 4 13:38:58 Pain of ear 451791905 Active 2023 MAREK MURCIA PA-C [address], [place], [address] , [place] - [facility] 4 13:39:12 Abnormal auditory perceptio n 50165456 Active 2023 Ruba fernandez [place] - [facility] 4 13:49:31 Problem Notes None recorded. Procedures Surgical History Date Name Laterality Status Provider Name and Address Organization Details Recorded Time 04/22/20 24 Cerumen removal without microscope right completed MAREK MURCIA PA-C [address], [place], [address], [place] - [facility] 04/22/2024 13:35:18 04/22/20 24 Air & Speech Audio with Tymps ([id number], [id number] & 37727) completed Ruba Calixto [place] - [facility] 04/22/2024 13:49:19 10/26/19 24 Allergy Immunotherapy Injections completed MAURA HOPE [address], [place], [address], [place] - [facility] 10/26/2023 10:50:24 10/19/19 24 Allergy Immunotherapy Injections completed RICHIE MARQUES, [address],[place] [address], [place], [address], [place] - [facility] 10/19/2023 10:18:16 Imaging Results Imaging Date Name Status LastModified by Organiz ation Details LastModified Time 06/12/2023 imaging/diagno stic result completed Information not available 01/08/2024 21:31:47 03/30/2021 imaging/diagno stic result completed Information not available 01/08/2024 21:33:38 04/23/2024 audiogram completed BARCODE Information no t available 04/23/2024 13:27:00 Procedure Notes None recorded. Medical Equipment None Reported. Allergies Allergen ID Allergen Name Allergen Category Reaction Reaction Severity Criticality Documentation Date Start Date Code Code System Note Provider Name and Address Organization Details Recorded Time 28756 Crestor medicatio n other Not available Not available 10/02/2023 05824 4 RxNorm React ion: other react ion, Unkno wn; Not Available [facility] 4 00:52:52 72452 Product containin g 3-hydroxy -3-methyl glutaryl- coenzyme A reductase inhibitor (product) medicatio n Not available Not available Not available 10/02/2023 74624 009 SNOMED React ion: other react ion, heart palpi tatio ns; Not Available [facility] 4 00:52:57 41248 Zetia medicatio n other Not available Not available 10/02/2023 90212 9 RxNorm React ion: other react ion, Unkno wn; Not Available [facility] 4 00:53:03 Medications Name Sig Start Date Stop Date Status Note LastModified by Organization Details LastModified Time amoxicill in 500 mg capsule TAKE 1 CAPSULE BY MOUTH 3 TIMES A DAY 04/22 completed Not Available Not Available Not Available budesonid e 32 mcg/actua tion nasal spray 2 spray into both nostrils 04/22 completed Medicati on ID: [id number] D uration Value: 30 Prescri bed By Name: Jean Pierre roman M.D. Bra nd Name: ric crystal Jazmin Method: E-Prescr ibed Sub s Allowed: subs OK Medic ationGen ericName : ric crystal Not Available Not Available Not Available fluconazo le 100 mg tablet TAKE 1 TABLET BY MOUTH EVERY DAY 04/22 completed Not Available Not Available Not Available clotrimaz ole 10 mg michael DISSOLVE ONE MICHAEL IN MOUTH 5 TIMES A DAY 04/22 completed Not Available Not Available Not Available silver sulfadiaz ine 1 % topical cream APPLY TOPICALL Y TO NAIL BED DAILY 04/22 completed Not Available Not Available Not Available ketotifen 0.025 % (0.035 %) eye drops PLACE 1 DROP INTO BOTH EYES TWICE A DAY active Not Available Not Available No t Available sucralfat e 100 mg/mL oral suspensio n TAKE 10ML BY MOUTH TWICE A DAY 04/22 completed Not Available Not Available Not Available fluconazo le 200 mg tablet TAKE 2 TABLETS BY MOUTH TWICE DAILY FOR 2 WEEKS. 04/22 completed Not Available Not Available Not Available meloxicam 15 mg tablet TAKE 1 TABLET BY MOUTH DAILY NEEDED FOR PAIN (NECK PAIN). DO NOT TAKE THIS DAILY 04/22 completed Not Available Not Available Not Available sucralfat e 1 gram tablet TAKE 1 TABLET BY MOUTH FOUR TIMES A DAY 04/22 completed Not Available Not Available Not Available prednison e 20 mg tablet TAKE 3 TABLETS BY MOUTH IN THE AMX2 DAYS, THEN 2 TABLETS X2 DAYS, THEN 1 TABLET X2 DAYS. WITH FOOD 04/22 completed Not Available Not Available Not Available doxycycli ne hyclate 50 mg capsule TAKE 1 CAPSULE BY MOUTH TWICE A DAY DIRECTED 04/22 completed Not Available Not Available Not Available triamcino lone acetonide 0.1 % topical cream APPLY TO AFFECTED AREA TWICE A DAY 04/22 completed Not Available Not Available Not Available oxycodone -acetamin ophen 5 mg-325 mg tablet TAKE 1 TABLET BY MOUTH EVERY 6 HOURS FOR PAIN 04/22 completed Not Available Not Available Not Available prednisol one acetate 1 % eye drops,debby pension INSTILL 1 DROP INTO BOTH EYES 4 TIMES A DAY 04/22 completed Not Available Not Available Not Available ciproflox acin 0.3 % eye drops INSTILL 1 DROP INTO BOTH EYES FOUR TIMES A DAY FOR 3 DAYS. 04/22 completed Not Available Not Available Not Available baclofen 10 mg tablet TAKE 1 TABLET BY MOUTH THREE TIMES A DAY 04/22 completed Not Available Not Available Not Available dexametha sone 2 mg tablet TAKE 1 TABLET BY MOUTH THREE TIMES A DAY 04/22 completed Not Available Not Available Not Available lansopraz ole 30 mg capsule,d elayed release TAKE 1 CAPSULE BY MOUTH EVERY DAY 04/22 completed Not Available Not Available Not Available nystatin- triamcino lone 100,000 unit/g-0. 1 % topical cream 07/11 completed Medicati on ID: [id number] B rand Name: nystatin -triamci nolone S end Method: E-Prescr ibed Sub s Allowed: subs OK Medic ationGen ericName : nystatin -triamci nolone Not Available Not Available Not Available mupirocin 2 % topical ointment APPLY TO AFFECTED AREA TWICE A DAY 04/22 completed Not Available Not Available Not Available ergocalci ferol (vitamin D2) 1,250 mcg (50,000 unit) capsule 2020 active Medicati on ID: [id number] B rand Name: ergocalc iferol (vitamin D2) Send Method: E-Prescr ibed Sub s Allowed: subs OK Medic ationGen ericName : ergocalc iferol (vitamin D2) Not Available Not Available Not Available Natacyn 5 % eye drops,debby pension INSITLL 1 DROP INTO RIGHT EYE EVERY HOUR WHILE AWAKE DIRECTED 04/22 completed Not Available Not Available Not Available azelastin e 137 mcg (0.1 %) nasal spray 2 spray into both nostrils 04/22 completed Medicati on ID: [id number] D uration Value: 30 Prescri bed By Name: ADRIANA Jaquez nd Name: anil wiggins Send Method: E-Prescr ibed Sub s Allowed: subs OK Medic ationGen ericName : azelastelizabeth wiggins Not Available Not Available Not Available epinephri ne 0.3 mg/0.3 mL injection , auto-inje ctor ADMINIST ER 1 PEN INJECTOR SUBCUTAN EOUSLY DIRECTED active Not Available Not Available No t Available albuterol sulfate HFA 90 mcg/actua tion aerosol inhaler INHALE 2 PUFFS INTO THE LUNGS EVERY 6 HOURS NEEDED FOR COUGH OR WHEEZING . 04/22 completed Not Available Not Available Not Available doxycycli ne hyclate 20 mg tablet TAKE 1 TABLET BY MOUTH TWICE A DAY 04/22 completed Not Available Not Available Not Available fluticaso ne propionat e 50 mcg/actua tion nasal spray,debby pension SPRAY 2 SPRAYS INTO EACH NOSTRIL EVERY DAY FOR 14 DAYS active Not Available Not Available No t Available loratadin e 10 mg tablet Take 1 tablet by mouth once a day 2022 active Medicati on ID: [id number] D uration Value: 30 Brand Name: loratadi ne Send Method: E-Prescr ibed Sub s Allowed: subs OK Medic ationGen ericName : loratadi ne Not Available Not Available Not Available amoxicill in 875 mg-potass ium clavulana te 125 mg tablet TAKE 1 TABLET BY MOUTH TWICE A DAY FOR 10 DAYS 04/22 completed Not Available Not Available Not Available tobramyci n 0.3 %-dexamet hasone 0.1 % eye drops,debby pension INSTILL 1 DROP OPHTHALM ICALLY DAILY 04/22 completed Not Available Not Available Not Available chlorhexi dine gluconate 0.12 % mouthwash SWISH AND SPIT WITH 10 ML 3 TIMES A DAY 04/22 completed Not Available Not Available Not Available hydrocodo ne 5 mg-acetam inophen 300 mg tablet TAKE 1 TABLET BY MOUTH EVERY 6 HOURS NEEDED FOR PAIN 04/22 completed Not Available Not Available Not Available olopatadi ne 0.2 % eye drops Instill 1 drop twice a day 04/22 completed Medicati on ID: [id number] D uration Value: 30 Brand Name: olopatad ine Send Method: E-Prescr ibed Sub s Allowed: subs OK Medic ationGen ericName : olopatad ine Not Available Not Available Not Available celecoxib 50 mg capsule TAKE 1 CAPSULE BY MOUTH 2 TIMES DAILY NEEDED FOR PAIN FOR UP TO 30 DAYS. 04/22 completed Not Available Not Available Not Available lotepredn ol etabonate 0.5 % eye gel drops INSTILL 1 DROP INTO THE RIGHT EYE AT BEDTIME DIRECTED 04/22 completed Not Available Not Available Not Available Miebo (PF) 100 % eye drops 04/22 completed Not Available Not Available Not Available Vitals Date Recorded Body height Body mass index (BMI) Body weight Provider Name and Address Organization Details Last Updated DateTime 04/22/2024 175.26 cm 25.4 kg/m2 64144.89 g Julita Mccallum [place] - [facility] 04/22/2024 13:01:36 Social History None recorded. Functional Status None recorded. Mental Status None recorded. Family History Nothing Reported. Medical History No medical history recorded. Past Encounters Encounter ID Performer Location Encounter Start Date Encounter Closed Date Diagnosis/Indication Diagnosis SNOMED-CT Code Diagnosis ICD10 Code Diagnosis Note [id number] RICHIE MARQUES [facility] All[facility] [address] [place] [phone] 10/19/2023 09:01:30 10/19/2023 10:22:23 Perennial allergic rhinitis 288909409 J30.89 [id number] DELFINO REY [facility] All[facility] [address] [place] [phone] 10/26/2023 10:25:20 10/26/2023 12:47:43 Perennial allergic rhinitis 099710581 J30.89 [id number] GEOFFREY ZHOU MD [facility] [address] [phone] 04/22/2024 12:47:27 04/22/2024 14:26:50 Arthralgia of temporomandibular joint 18159709 M26.629 Pain of ear 314570538 H9 2.09 Abnormal a uditory perception 05856847 H93.299 Audiologic al evaluation results: Right ear: {{Normal* Normal through 2 kHz Mild M oderate Mo derately-s evere Alem re Profoun d}} {{hearing* hearing. sloping to a mild slopi ng to a moderate s loping to moderately severe slo ping to severe slo ping to profound f lat high frequency low frequency mid frequency cookie bite maldonado curve}} {{with* se nsorineura l hearing loss with condu ctive hearing loss with mixed hearing loss with}} {{excellen t* good fa ir poor no measurable }} word recognitio n. Left ear: {{Normal* Normal through 2 kHz Mild M oderate Mo derately-s evere Alem re Profoun d}} {{hearing* hearing. sloping to a mild slopi ng to a moderate s loping to moderately severe slo ping to severe slo ping to profound f lat high frequency low frequency mid frequency cookie bite maldonado curve}} {{with* se nsorineura l hearing loss with condu ctive hearing loss with mixed hearing loss with}} {{excellen t* good fa ir poor no measurable }} word recognitio n. Tympanomet ry: Right Ear:{{Type A Type As Type Ad* Type C Type C, shallow & rounded Ty pe B Type B with large volume Cou ld not maintain a hermetic seal}} Left Ear:{{Type A Type As Type Ad* Type C Type C, shallow & rounded Ty pe B Type B with large volume Cou ld not maintain a hermetic seal}} Health Concerns Section Related Observation LastModified by Organization Detai ls LastModified Time None Recorded Concern Status LastModified by Organization Details LastModified Time None Recorded Advance Directives Directive None Recorded Payers Encounter Date Sequence Insurance Name Policy Number Policy Betancourt Covered Member ID Betancourt Member ID Guarantor Name 10/19/2023 1 [facility] - PREFERRED (MEDICARE SUPPLEMENT) [id number] Oswaldo Bland [id number] 1 Oswaldo Bland 10/26/2023 1 [facility], [facility] - DIRECT CONNECTORCARE TYPE I (HMO) [id number] Oswaldo Bland [id number] Oswaldo Bland 04/22/2024 1 [facility], [facility] - DIRECT CONNECTORCARE TYPE I (HMO) [id number] Oswaldo Bland [id number] Oswaldo Bland Notes Date Note Type Note Provider Name and Address Organization Details Recorded Time 04/22/2024 text/html 49-year-old male presents for evaluation of bilateral ear pain and pressure. He states this has been on and off for about 6 months and happens bilaterally. The pain begins in front of his ear and radiates down his jaw and across his cheekbones. Somewhat relieved by opening his jaw or popping his ears. Has had two instances of brief muffled sensation in his ears which resolved without intervention. No drainage from the ears. No history of smoking and denies pain or difficulty swallowing, hemoptysis, weight loss, or voice changes. Has had significant dental trouble recently involving extractions of multiple teeth and an ill fitting bridge which he is working toward having replaced. GEOFFREY ZHOU MD [address] [place] [address], [phone], [place] - [facility] 04/23/2024 09:40:43
== END 2024-06-23 11:43 | disposition home or self-care (01) ==
PROVIDERS: PCP Family Medicine; Visit Provider Internal Medicine Gastroenterology
DX: E46 Unspecified protein-calorie malnutrition (principal)
CPT/HCPCS: 99213